=== PATIENT | female | born 1955 | race Caucasian/White ===

== ENCOUNTER 2021-05-08 10:16 | Inpatient (IN) ==
[2021-05-08] MEDS ORDERED: POTASSIUM CHLORIDE / WTR 10 MEQ/100 ML PLCT IV ONE (11:29)
--- NOTE | 2021-05-08 11:32 | Emergency Department Note ---
History of Present Illness General Chief complaint: Abnormal Labs/Diagnostic Testing Stated complaint: SENT BY [facility] Time Seen by Provider: 05/08/21 11:17 History of Present Illness This is a 65-year-old female that presents to the emergency department via private vehicle accompanied by male with complaints of "hypokalemia, lightheadedness, dizzy". Patient states that earlier today she had her blood drawn at 3:25 AM. She notes around that time she was experiencing a headache, nausea. She also felt that she had some trouble breathing as well. She also notes intermittent chest pain. She received an emergent call this morning noting that her potassium was critically low. She presents to us here for evaluation. She denies any fevers, vomiting or diarrhea. No pain at the pres ent time. Home Medications Medication Instructions Recorded Confirmed Type aspirin 81 mg tablet,delayed 81 mg PO DAILY #30 tab 09/28/20 05/08/21 Rx release folic acid 0.8 mg capsule 0.8 mg PO DAILY #30 cap 09/28/20 05/08/21 Rx ibuprofen [Advil] 200 mg PO DAILY PRN 09/28/20 05/08/21 History esomeprazole magnesium [Nexium] 1 tab PO BID 10/05/20 05/08/21 History lubiprostone 24 mcg capsule 24 mcg PO BID #180 cap 10/12/20 05/08/21 Rx (Amitiza) denosumab 60 mg/mL subcutaneous 60 mg SUBCUT DIRECTED ml 01/05/21 05/08/21 History syringe (Prolia) flurazepam 30 mg capsule 30 mg PO HS PRN #30 cap 04/04/21 05/08/21 Rx atorvastatin 40 mg tablet 40 mg PO DAILY 04/13/21 05/08/21 History multivitamin [Daily Multivitamin] 1 tab PO DAILY 04/13/21 05/08/21 History triamterene 37.5 1 cap PO DAILY #90 cap 04/13/21 05/08/21 Rx mg-hydrochlorothiazide 25 mg capsule cyclobenzaprine 10 mg tablet 10 mg PO DAILY PRN #30 tab 05/02/21 05/08/21 Rx vitamin D3 2,500 unit-folic acid 1 1 tab PO DAILY 05/08/21 05/08/21 History mg tablet Allergies Allergy/AdvReac Type Severity Reaction Status Date / Time Latex, Natural Rubber Allergy Mild Verified 05/08/21 12:34 Past Med/Surg History Medical History Anal fissure Chronic constipation Chronic distal aortic occlusion Depression Endometriosis GERD without esophagitis Hiatal hernia Hypertension Hypertriglyceridemia Insomnia Long-term current use of benzodiazepine Osteoporosis Prediabetes PVD (peripheral vascular disease) Rectocele Vitamin D deficiency Surgical History H/O colonoscopy with polypectomy (~01/2019) S/P appendectomy 1974 S/P hysterectomy 1990 S/P shoulder surgery 2004? Family History Aunt Breast cancer Father Myocardial infarction Denies family history of Crohn's disease Colorectal cancer Ulcerative colitis Colonic polyp Social History Smoking Status: Never smoker Age Started Using Tobacco: 20; Age Quit Using Tobacco: 62; packs per day: 0.5; Second Hand Exposure: No; Hx Alcohol Use: Yes Alcohol type: wine Alcohol Intake Frequency: 4 or More x per/Week Hx Substance Use: No Visual Impairment: No Limitations Hearing Ability: Normal marital status: Current Living Situation: Family Current Living Situation Comment: , daughter, and 2 granddaughters current occupational status: other current occupation: Homemaker Feels Safe at Home: Yes Dental Care, Regularly: No Seatbelt Use: always Sunscreen Use: No Review of Systems A total of 10 systems reviewed and were otherwise negative Physical Exam Vital Signs Vital Signs - 24 hr 05/08/21 10:28 05/08/21 11:20 05/08/21 11:21 Temperature 36.6 C Temperature Source Skin Pulse Rate 80 78 Pulse Rate [Apical] 70 Pulse Rate from SpO2 Sensor Pulse Rhythm [Apical] Regular Respiratory Rate 18 16 17 Respiratory Effort / Characteristics Non-Labored Respiratory Depth Normal Blood Pressure Blood Pressure [Right Arm] 135/73 Blood Pressure Mean Blood Pressure Mean [Right Arm] 93 Pulse Oximetry 100 99 Oxygen Delivery Method Room Air Room Air Sepsis Recent Fever Within 48 Hours No Sepsis New/Unexplained Change in Mental Status No Sepsis Action Taken by Nursing No Action Required 05/08/21 11:24 05/08/21 11:30 05/08/21 12:00 Temperature Temperature Source Pulse Rate 74 75 Pulse Rate [Apical] Pulse Rate from SpO2 Sensor 72 75 Pulse Rhythm [Apical] Respiratory Rate 21 18 Respiratory Effort / Characteristics Respiratory Depth Blood Pressure 145/93 H 126/61 Blood Pressure [Right Arm] Blood Pressure Mean 110 82 Blood Pressure Mean [Right Arm] Pulse Oximetry 99 96 92 Oxygen Delivery Method Room Air Sepsis Recent Fever Within 48 Hours Sepsis New/Unexplained Change in Mental Status Sepsis Action Taken by Nursing 05/08/21 12:30 05/08/21 13:00 Temperature Temperature Source Pulse Rate 82 78 Pulse Rate [Apical] Pulse Rate from SpO2 Sensor 82 77 Pulse Rhythm [Apical] Respiratory Rate 17 18 Respiratory Effort / Characteristics Respiratory Depth Blood Pressure 125/69 129/67 Blood Pressure [Right Arm] Blood Pressure Mean 87 87 Blood Pressure Mean [Right Arm] Pulse Oximetry 90 95 Oxygen Delivery Method Sepsis Recent Fever Within 48 Hours Sepsis New/Unexplained Change in Mental Status Sepsis Action Taken by Nursing VITAL SIGNS - Vital signs and nursing notes were reviewed. Stable and afebrile. GENERAL -65-year-old female appearing her stated age who is in no acute distress. Communicates well with provider and answers questions appropriately. SKIN - Without rashes. No meningeal or petechial rash. HEAD - NC/AT. EYES - PERRL with EOMI bilaterally. Sclera anicteric. EARS - No deformities of external structures noted on gross examination bilaterally. NOSE - Midline and without cyanosis. No epistaxis or purulent drainage noted. MOUTH/OROPHARYNX - Without perioral cyanosis. NECK - Neck with FROM. No nuchal rigidity. LUNGS - Chest wall symmetric without accessory muscle use, intercostals retracti ons, or central cyanosis. Normal vesicular breath sounds CTA B/L. No wheezes, rales, or rhonchi appreciated. CARDIAC - RRR with S1/S2. No murmur, rubs, or gallops appreciated. ABDOMEN - Abdominal contour normal without pulsations or visible masses. BS normoactive all four quadrants. No tenderness, palpable masses, hepatosplenomegaly, or ascites noted. EXTREMITIES - No clubbing or peripheral cyanosis. +5/5 strength noted in UE/LE bilaterally. NEUROLOGIC - Cranial nerves II through XII grossly intact. PSYCH - A&O, and cooperates fully with examiner. Pt is very pleasant and interacts well with examiner. Course Administered Medications Magnesium Sulfate/Dextrose (Magnesium Sulfate / D5w) 1 gm in 100 mls @ 50 mls/hr IV Q2H ROCKY Stop: 05/08/21 18:29 Last Admin: 05/08/21 15:41 Dose: 50 mls/hr Documented by: [id number] Discontinued Medications Potassium Chloride (K Tito / Wtr) 10 meq in 100 mls @ 100 mls/hr IV ONE ONE Stop: 05/08/21 12:28 Last Infusion: 05/08/21 13:59 Dose: 0 mls/hr Documented by: [id number] Admin: 05/08/21 12:59 Dose: 100 mls/hr Documented by: [id number] Potassium Chloride (K Tito / Wtr) 10 meq in 100 mls @ 100 mls/hr IV Q1H STA Stop: 05/08/21 15:10 Last Infusion: 05/08/21 15:40 Dose: 0 mls/hr Documented by: [id number] Admin: 05/08/21 14:34 Dose: 100 mls/hr Documented by: [id number] Potassium Chloride (Potassium Chloride Crtab 20 Meq Tabcr) 60 meq PO NOW STA Stop: 05/08/21 13:58 Last Admin: 05/08/21 14:35 Dose: 60 meq Documented by: [id number] Medical Decision Making Laboratory Data Result diagrams: 05/08/21 11:30 05/08/21 12:44 Lab Results 05/08/21 05/08/21 05/08/21 Range/Units 11:24 11:24 11:30 WBC 11.35 H (4.8-10.8) K/uL RBC 4.17 L (4.2-5.4) M/uL Hgb 14.5 (12.0-16.0) g/dL Hct 40.3 (37-47) % MCV 96.6 (80-100) fL MCH 34.8 H (25-34) pg MCHC 36.0 (32-36) g/dL RDW Std Deviation 45.1 (36.4-46.3) fL RDW Coeff of Kaylynn 12.9 (11.5-14.5) % Plt Count 319 (130-400) K/uL MPV 8.8 (7.4-10.4) fL Immature Gran % (Auto) 0.4 % Neut % (Auto) 70.7 % Lymph % (Auto) 19.6 % Lander % (Auto) 8.4 % Eos % (Auto) 0.6 % Baso % (Auto) 0.3 % Neut # (Auto) 8.04 H (1.4-6.5) K/uL Lymph # (Auto) 2.22 (1.2-3.4) K/uL Lander # (Auto) 0.95 H (0.11-0.59) K/uL Eos # (Auto) 0.07 (0-0.5) K/uL Baso # (Auto) 0.03 (0-0.2) K/uL Immature Gran # (Auto) 0.04 H (0.00-0.02) K/uL Sodium (136-145) mmol/L Potassium (3.5-5.1) mmol/L Chloride (98-107) mmol/L Carbon Dioxide (21-32) mmol/L Anion Gap (3-11) BUN (7-18) mg/dl Creatinine (0.6-1.2) mg/dl Est Cr Clr Drug Dosing ml/min Est GFR ( Amer) ml/min Est GFR (Non-Af Amer) ml/min BUN/Creatinine Ratio (10-20) Glucose (70-99) mg/dl Osmolality (280-300) mOsm/kg Calcium (8.5-10.1) mg/dl Phosphorus (2.5-4.9) mg/dl Magnesium (1.8-2.4) mg/dl Total Bilirubin (0.2-1) mg/dl AST (15-37) U/L ALT (12-78) U/L Alkaline Phosphatase (45-117) U/L Troponin I (0-0.045) ng/ml Total Protein (6.4-8.2) gm/dl Albumin (3.4-5.0) gm/dl Globulin (2.5-4.0) gm/dl Albumin/Globulin Ratio (0.9-2) TSH (0.300-4.500) uIu/ml Urine Color Urine Appearance (Clear) Urine pH (4.5-7.5) Ur Specific [address] (1.000-1.030) Urine Protein (Negative) Urine Glucose (UA) (Negative) Urine Ketones (Negative) Urine Blood (Negative) Urine Nitrite (Negative) Urine Bilirubin (Negative) Urine Urobilinogen (Negative) Ur Leukocyte Esterase (Negative) Urine WBC (Auto) (0-5) /hpf Urine RBC (Auto) (0-4) /hpf U Hyaline Cast (Auto) (0-5) /lpf U Epithel Cells (Auto) (0-5) /lpf Urine Bacteria (Auto) (Negative) Urine Osmolality (500-800) mOsm/kg Ur Random Sodium mmol/L Ur Random Potassium mmol/L Ur Random Chloride mmol/L COVID-19 Eval Order Covid19 at [facility] SARS-CoV-2 (PCR) NEGATIVE (Negative) 05/08/21 05/08/21 05/08/21 Range/Units 11:30 11:30 12:44 WBC (4.8-10.8) K/uL RBC (4.2-5.4) M/uL Hgb (12.0-16.0) g/dL Hct (37-47) % MCV (80-100) fL MCH (25-34) pg MCHC (32-36) g/dL RDW Std Deviation (36.4-46.3) fL RDW Coeff of Kaylynn (11.5-14.5) % Plt Count (130-400) K/uL MPV (7.4-10.4) fL Immature Gran % (Auto) % Neut % (Auto) % Lymph % (Auto) % Lander % (Auto) % Eos % (Auto) % Baso % (Auto) % Neut # (Auto) (1.4-6.5) K/uL Lymph # (Auto) (1.2-3.4) K/uL Lander # (Auto) (0.11-0.59) K/uL Eos # (Auto) (0-0.5) K/uL Baso # (Auto) (0-0.2) K/uL Immature Gran # (Auto) (0.00-0.02) K/uL Sodium 116 L* D 117 L* (136-145) mmol/L Potassium 2.1 L* 2.1 L* (3.5-5.1) mmol/L Chloride 74 L 77 L (98-107) mmol/L Carbon Dioxide 32 31 (21-32) mmol/L Anion Gap 10.0 9.0 (3-11) BUN 4 L 4 L (7-18) mg/dl Creatinine 0.55 L 0.44 L (0.6-1.2) mg/dl Est Cr Clr Drug Dosing 71.4 89.3 ml/min Est GFR ( Amer) 115.7 124.5 ml/min Est GFR (Non-Af Amer) 99.8 107.4 ml/min BUN/Creatinine Ratio 7.2 L 8.9 L (10-20) Glucose 99 94 (70-99) mg/dl Osmolality 239 L* (280-300) mOsm/kg Calcium 9.0 8.7 (8.5-10.1) mg/dl Phosphorus 2.8 (2.5-4.9) mg/dl Magnesium 1.9 1.9 (1.8-2.4) mg/dl Total Bilirubin 0.4 (0.2-1) mg/dl AST 26 (15-37) U/L ALT 28 (12-78) U/L Alkaline Phosphatase 89 (45-117) U/L Troponin I < 0.015 (0-0.045) ng/ml Total Protein 7.4 (6.4-8.2) gm/dl Albumin 3.7 (3.4-5.0) gm/dl Globulin 3.7 (2.5-4.0) gm/dl Albumin/Globulin Ratio 1.0 (0.9-2) TSH 1.510 (0.300-4.500) uIu/ml Urine Color Urine Appearance (Clear) Urine pH (4.5-7.5) Ur Specific [address] (1.000-1.030) Urine Protein (Negative) Urine Glucose (UA) (Negative) Urine Ketones (Negative) Urine Blood (Negative) Urine Nitrite (Negative) Urine Bilirubin (Negative) Urine Urobilinogen (Negative) Ur Leukocyte Esterase (Negative) Urine WBC (Auto) (0-5) /hpf Urine RBC (Auto) (0-4) /hpf U Hyaline Cast (Auto) (0-5) /lpf U Epithel Cells (Auto) (0-5) /lpf Urine Bacteria (Auto) (Negative) Urine Osmolality (500-800) mOsm/kg Ur Random Sodium mmol/L Ur Random Potassium mmol/L Ur Random Chloride mmol/L COVID-19 Eval Order SARS-CoV-2 (PCR) (Negative) 05/08/21 05/08/21 05/08/21 Range/Units 13:09 13:09 13:09 WBC (4.8-10.8) K/uL RBC (4.2-5.4) M/uL Hgb (12.0-16.0) g/dL Hct (37-47) % MCV (80-100) fL MCH (25-34) pg MCHC (32-36) g/dL RDW Std Deviation (36.4-46.3) fL RDW Coeff of Kaylynn (11.5-14.5) % Plt Count (130-400) K/uL MPV (7.4-10.4) fL Immature Gran % (Auto) % Neut % (Auto) % Lymph % (Auto) % Lander % (Auto) % Eos % (Auto) % Baso % (Auto) % Neut # (Auto) (1.4-6.5) K/uL Lymph # (Auto) (1.2-3.4) K/uL Lander # (Auto) (0.11-0.59) K/uL Eos # (Auto) (0-0.5) K/uL Baso # (Auto) (0-0.2) K/uL Immature Gran # (Auto) (0.00-0.02) K/uL Sodium (136-145) mmol/L Potassium (3.5-5.1) mmol/L Chloride (98-107) mmol/L Carbon Dioxide (21-32) mmol/L Anion Gap (3-11) BUN (7-18) mg/dl Creatinine (0.6-1.2) mg/dl Est Cr Clr Drug Dosing ml/min Est GFR ( Amer) ml/min Est GFR (Non-Af Amer) ml/min BUN/Creatinine Ratio (10-20) Glucose (70-99) mg/dl Osmolality (280-300) mOsm/kg Calcium (8.5-10.1) mg/dl Phosphorus (2.5-4.9) mg/dl Magnesium (1.8-2.4) mg/dl Total Bilirubin (0.2-1) mg/dl AST (15-37) U/L ALT (12-78) U/L Alkaline Phosphatase (45-117) U/L Troponin I (0-0.045) ng/ml Total Protein (6.4-8.2) gm/dl Albumin (3.4-5.0) gm/dl Globulin (2.5-4.0) gm/dl Albumin/Globulin Ratio (0.9-2) TSH (0.300-4.500) uIu/ml Urine Color Yellow Urine Appearance Clear (Clear) Urine pH 7.0 (4.5-7.5) Ur Specific [address] 1.002 (1.000-1.030) Urine Protein Negative (Negative) Urine Glucose (UA) Negative (Negative) Urine Ketones Negative (Negative) Urine Blood Trace H (Negative) Urine Nitrite Positive A (Negative) Urine Bilirubin Negative (Negative) Urine Urobilinogen Negative (Negative) Ur Leukocyte Esterase Negative (Negative) Urine WBC (Auto) 1-5 (0-5) /hpf Urine RBC (Auto) 0-4 (0-4) /hpf U Hyaline Cast (Auto) 0 (0-5) /lpf U Epithel Cells (Auto) 0-5 (0-5) /lpf Urine Bacteria (Auto) 4+ H (Negative) Urine Osmolality 76 L (500-800) mOsm/kg Ur Random Sodium mmol/L Ur Random Potassium < 1.0 mmol/L Ur Random Chloride 22 mmol/L COVID-19 Eval Order SARS-CoV-2 (PCR) (Negative) 05/08/21 Range/Units 13:09 WBC (4.8-10.8) K/uL RBC (4.2-5.4) M/uL Hgb (12.0-16.0) g/dL Hct (37-47) % MCV (80-100) fL MCH (25-34) pg MCHC (32-36) g/dL RDW Std Deviation (36.4-46.3) fL RDW Coeff of Kaylynn (11.5-14.5) % Plt Count (130-400) K/uL MPV (7.4-10.4) fL Immature Gran % (Auto) % Neut % (Auto) % Lymph % (Auto) % Lander % (Auto) % Eos % (Auto) % Baso % (Auto) % Neut # (Auto) (1.4-6.5) K/uL Lymph # (Auto) (1.2-3.4) K/uL Lander # (Auto) (0.11-0.59) K/uL Eos # (Auto) (0-0.5) K/uL Baso # (Auto) (0-0.2) K/uL Immature Gran # (Auto) (0.00-0.02) K/uL Sodium (136-145) mmol/L Potassium (3.5-5.1) mmol/L Chloride (98-107) mmol/L Carbon Dioxide (21-32) mmol/L Anion Gap (3-11) BUN (7-18) mg/dl Creatinine (0.6-1.2) mg/dl Est Cr Clr Drug Dosing ml/min Est GFR ( Amer) ml/min Est GFR (Non-Af Amer) ml/min BUN/Creatinine Ratio (10-20) Glucose (70-99) mg/dl Osmolality (280-300) mOsm/kg Calcium (8.5-10.1) mg/dl Phosphorus (2.5-4.9) mg/dl Magnesium (1.8-2.4) mg/dl Total Bilirubin (0.2-1) mg/dl AST (15-37) U/L ALT (12-78) U/L Alkaline Phosphatase (45-117) U/L Troponin I (0-0.045) ng/ml Total Protein (6.4-8.2) gm/dl Albumin (3.4-5.0) gm/dl Globulin (2.5-4.0) gm/dl Albumin/Globulin Ratio (0.9-2) TSH (0.300-4.500) uIu/ml Urine Color Urine Appearance (Clear) Urine pH (4.5-7.5) Ur Specific [address] (1.000-1.030) Urine Protein (Negative) Urine Glucose (UA) (Negative) Urine Ketones (Negative) Urine Blood (Negative) Urine Nitrite (Negative) Urine Bilirubin (Negative) Urine Urobilinogen (Negative) Ur Leukocyte Esterase (Negative) Urine WBC (Auto) (0-5) /hpf Urine RBC (Auto) (0-4) /hpf U Hyaline Cast (Auto) (0-5) /lpf U Epithel Cells (Auto) (0-5) /lpf Urine Bacteria (Auto) (Negative) Urine Osmolality (500-800) mOsm/kg Ur Random Sodium 29 mmol/L Ur Random Potassium mmol/L Ur Random Chloride mmol/L COVID-19 Eval Order SARS-CoV-2 (PCR) (Negative) Imaging Data Radiologist's Impression: Chest X-Ray 05/08/21 11:29 XR chest 1V portable CLINICAL HISTORY: chest pain, hypokalemia COMPARISON STUDY: January 20, 2009 FINDINGS: No pneumothorax. No pleural effusion. Multiple linear densities are seen at bilateral bases and could represent atelectasis or scarring. Cardiomediastinal silhouette is within normal limits in size. No significant pulmonary vascular congestion.. Aorta is calcified. Osseous structures: unremarkable IMPRESSION: 1. Atelectasis or scarring at bilateral bases. 2. Atherosclerosis. ACT 112: Negative or not required by law. The above report was generated using voice recognition software. It may contain grammatical, syntax or spelling errors. Electronically signed by: Klaudia Moreno DO 05/08/2021 11:52 AM MDM Narrative Patient was seen and evaluated as above in room C09. Review was performed of nursing notes and vital signs. I did review pertinent previous visits and patient history. After obtaining a thorough history and physical examination the above work up was performed. Patient presents to us today referred secondary to critical hypokalemia value drawn on routine labs that were obtained earlier this morning. She does note associated intermittent dizziness, lightheadedness, chest pain/shortness of breath. She is nontoxic on exam. Vital signs stable. Options of care were discussed with the patient. IV access was established. Labs were drawn. Patient was seen during a period of high volume and high acuity. Laboratory studies reveal mild leukocytosis 11.35. No concerning anemia noted there is hyponatremia and hypokalemia noted urine sample concerning for possible UTI. Covid test negative. Patient will require further evaluation and management the inpatient setting. 10meq of potassium chloride IV was ordered. Case discussed with the hospitalist. Please refer to further documentation regarding her stay. GCS: 15 Continuous cardiac monitoring was ordered for the patient. This was secondary to her symptoms/hypokalemia. This revealed at a rate of 81/min. In the evaluation and treatment of this patient the following differential diagnoses were entertained: IN, PE, electrolyte disturbance, dehydration, among others. Impression & Plan Acute hyponatremia, Acute hypokalemia Discharge Plan Visit Data Chief Complaint: Abnormal Labs/Diagnostic Testing Stated Complaint: SENT BY , [facility] ED Provider: [facility] Midlevel Provider: Kg Boyer Discharge Problem: Acute hyponatremia, Acute hypokalemia Patient Disposition: Admitted As Inpatient Condition: Good Discharge Instructions Interventions: ED Discharge Assessment Last Done: 05/08/21 16:44
[2021-05-08 11:45] LABS: Basophils # (auto) 0.03 K/uL (0-0.2); Basophils % (auto) 0.3 %; Eosinophils # (auto) 0.07 K/uL (0-0.5); Eosinophils % (auto) 0.6 %; Hematocrit (blood only) 40.3 % (37-47); Hemoglobin 14.5 g/dL (12.0-16.0); Immature Granulocytes # (auto) 0.04 K/uL (0.00-0.02); Immature Granulocytes % (auto) 0.4 %; Lymphocytes # (auto) 2.22 K/uL (1.2-3.4); Lymphocytes % (auto) 19.6 %; Mean Corpuscular Hemoglobin 34.8 pg (25-34); Mean Corpuscular Volume 96.6 fL (80-100); Mean Platelet Volume 8.8 fL (7.4-10.4); Monocytes # (auto) 0.95 K/uL (0.11-0.59); Monocytes % (auto) 8.4 %; Neutrophils # (auto) 8.04 K/uL (1.4-6.5); Neutrophils % (auto) 70.7 %; Platelet Count 319 K/uL (130-400); RDW Coefficient of Variation 12.9 % (11.5-14.5); RDW Standard Deviation 45.1 fL (36.4-46.3); Red Blood Count 4.17 M/uL (4.2-5.4); White Blood Count 11.35 K/uL (4.8-10.8)
--- NOTE | 2021-05-08 11:54 | XRay Report ---
XR chest 1V portable CLINICAL HISTORY: chest pain, hypokalemia COMPARISON STUDY: January 20, 2009 FINDINGS: No pneumothorax. No pleural effusion. Multiple linear densities are seen at bilateral bases and could represent atelectasis or scarring. Cardiomediastinal silhouette is within normal limits in size. No significant pulmonary vascular congestion.. Aorta is calcified. Osseous structures: unremarkable IMPRESSION: 1. Atelectasis or scarring at bilateral bases. 2. Atherosclerosis. ACT 112: Negative or not required by law. The above report was generated using voice recognition software. It may contain grammatical, syntax o r spelling errors. Electronically signed by: Klaudia Moreno DO 05/08/2021 11:52 AM
[2021-05-08 12:24] LABS: Alanine Aminotransferase 28 U/L (12-78); Albumin Level 3.7 gm/dl (3.4-5.0); Alkaline Phosphatase 89 U/L (45-117); Aspartate Aminotransferase 26 U/L (15-37); BUN Creatinine Ratio 7.2 (10-20); Bilirubin,Total 0.4 mg/dl (0.2-1); Blood Urea Nitrogen 4 mg/dl (7-18); Carbon Dioxide 32 mmol/L (21-32); Chloride 74 mmol/L (98-107); Creatinine Clr Calc Pharmacy 71.4 ml/min; Est GFR (African American) 115.7 ml/min; Est GFR (Non-African American) 99.8 ml/min; Globulin 3.7 gm/dl (2.5-4.0); Glucose 99 mg/dl (70-99); Magnesium 1.9 mg/dl (1.8-2.4); Potassium 2.1 mmol/L (3.5-5.1); Sodium 116 mmol/L (136-145); Total Protein 7.4 gm/dl (6.4-8.2); Troponin I < 0.015 ng/ml (0-0.045)
--- NOTE | 2021-05-08 13:07 | History & Physical Report ---
Date of Service May 08, 2021 Assessment & Plan (1) Hypokalemia: Plan: Acute hypokalemia- multifactorial - decrease oral intake, stool losses, diuretic - Hold diuretics - 60meq PO and 10meq IV in the EMD - Continue with 20meq IV to the quigley, and 40 meq PO at dinner - BMP q4 hours - Hyperkalemia, mild elevation of HCO3 at 31 - Na/cl ratio >1.4 - Urine potassium <1- consistent with extra-renal losses - Urine CL 22- consistent with diuretics (2) Hyponatremia: Plan: Diuretic use, water intoxication, chronic pain, decrease salt intake orally and acute hypokalemia - Hypotonic Euvolemic Hyponatremia- primary polydipsia - Serum OSMO 239; Urine osmo 76- Free water restriction 1.2L/24 hours - LR- 100ml/hr - UA sodium 29 - This will increase with increasing potassium as well so monitor q 4 hours - Goal 6-8mmol/24 hours (3) Left radial head fracture: Plan: Awaiting surgical repair - Was to get chemical EST within the next 2 days- evaluate ability to achieve once electrolytes are stabilized and cause identified - Pain control- Tylenol, Motrin, Lidoderm patches (4) Dyslipidemia: Plan: Cotninue statin (5) PVD (peripheral vascular disease): Plan: No acute change (6) Chronic distal aortic occlusion: Plan: Followed by outside provider- reported stable and reportedly cleared for elbow surgery (7) Hypertension: Plan: Stable - Hold diuretics at this time (8) Vitamin D deficiency: Plan: Continue Vitamin D (9) GERD without esophagitis: Plan: Continue esomeprazole (10) Abnormal urine: Plan: UA- WBC 1-5, 4+bacteria, LE Negative, Nitrates + - asymptomatic- follow symptoms await cultures - serum WBC 11 with NLR 4:1 History of Present Illness Primary Care Provider: Sienna Real, DO 65 YOF with past medical history of: HTN, HLD, ? Mitral valve prolapse, GERD, chronic constipation, insomnia, Vitamin D deficiency, distal aorta occlusion, PVD, Fractured left radial head. Patient comes in today for abnormal laboratory value of potassium of 2.3. The patient had her labs drawn at home and transported an hour prior to running. Validity of these results was done x2, with her K at 2.1 and NA at 117. The patient had her labs drawn secondary to feeling week and tired over the past week. She endorses that her appetite is normally low secondary to feeling full, but this has gotten worse secondary to her elbow pain. She has chronic constipation, and is on Amitiza 24mcb BID, which gives her mixed results of either 1-4 BM per day mostly liquid. She does endorse mostly water intake with about 5 of the 64 oz bottles per day. Patient has not gotten her elbow repaired yet secondary to clearance for her distal aortic occlusion and heart evaluation for surgical tolerance by cardiology. The patient is to have a chemical stress test tomorrow she states. Most of her complaints are related to her pain in her elbow. Allergies Allergy/AdvReac Type Severity Reaction Status Date / Time Latex, Natural Rubber Allergy Mild Verified 05/08/21 12:34 Home Medications Medication Instructions Recorded Confirmed Type aspirin 81 mg tablet,delayed 81 mg PO DAILY #30 tab 09/28/20 05/08/21 Rx release folic acid 0.8 mg capsule 0.8 mg PO DAILY #30 cap 09/28/20 05/08/21 Rx ibuprofen [Advil] 200 mg PO DAILY PRN 09/28/20 05/08/21 History esomeprazole magnesium [Nexium] 1 tab PO BID 10/05/20 05/08/21 History lubiprostone 24 mcg capsule 24 mcg PO BID #180 cap 10/12/20 05/08/21 Rx (Amitiza) denosumab 60 mg/mL subcutaneous 60 mg SUBCUT DIRECTED ml 01/05/21 05/08/21 History syringe (Prolia) flurazepam 30 mg capsule 30 mg PO HS PRN #30 cap 04/04/21 05/08/21 Rx atorvastatin 40 mg tablet 40 mg PO DAILY 04/13/21 05/08/21 History multivitamin [Daily Multivitamin] 1 tab PO DAILY 04/13/21 05/08/21 History triamterene 37.5 1 cap PO DAILY #90 cap 04/13/21 05/08/21 Rx mg-hydrochlorothiazide 25 mg capsule cyclobenzaprine 10 mg tablet 10 mg PO DAILY PRN #30 tab 05/02/21 05/08/21 Rx vitamin D3 2,500 unit-folic acid 1 1 tab PO DAILY 05/08/21 05/08/21 History mg tablet Past Med/Surg History Medical History Anal fissure Chronic constipation Chronic distal aortic occlusion Depression Endometriosis GERD without esophagitis Hiatal hernia Hypertension Hypertriglyceridemia Insomnia Long-term current use of benzodiazepine Osteoporosis Prediabetes PVD (peripheral vascular disease) Rectocele Vitamin D deficiency Surgical History H/O colonoscopy with polypectomy (~01/2019) S/P appendectomy 1974 S/P hysterectomy 1990 S/P shoulder surgery 2004? Family History Aunt Breast cancer Father Myocardial infarction Denies family history of Crohn's disease Colorectal cancer Ulcerative colitis Colonic polyp Social History Smoking Status: Former smoker Age Started Using Tobacco: 20; Age Quit Using Tobacco: 62; packs per day: 0.5; Second Hand Exposure: No; Hx Alcohol Use: Yes Alcohol type: hard liquor Alcohol Intake Frequency: 4 or More x per/Week Hx Substance Use: No Preferred Language: [place] Communication Ability: Effective Visual Impairment: No Limitations Hearing Ability: Normal Home Hospice Rn Required: No Beliefs That Will Affect Care: None marital status: Current Living Situation: Family Current Living Situation Comment: , daughter, and 2 granddaughters current occupational status: other current occupation: Homemaker Feels Safe at Home: Yes Dental Care, Regularly: No Seatbelt Use: always Sunscreen Use: No Assistive Devices: Glasses Review of Systems Review of Systems: REVIEW OF SYSTEMS: Constitutional: No fever, sweats or chills Eyes: No diplopia, no worsening or blurred vision ENT: (+) difficulty hearing, early satiety Respiratory: No cough, sputum, dyspnea at rest or on exertion Cardiovascular: No chest pain, tightness or palpitations Abdomen: No pain, nausea, vomiting, diarrhea or constipation Musculoskeletal: (+) pain, calf pain, swelling Neurologic: No weakness, numbness/tingling, or balance problems Psychiatric: (+) insomnia, No anxiety or depression Skin: No rash or itch Physical Exam Physical Exam: PHYSICAL EXAM: General: awake, alert, no apparent distress Head: Normocephalic, atraumatic ENT: PERRL, EOMI, no pharyngeal exudate, mucous membranes moist Neuro: AAO x 3, speech clear and appropriate, strength intact bilaterally 5/5, sensation intact and equal all extremities and dermatomes, no pronator drift Chest: equal rise and fall of the chest, no accessory muscle use, no heaves or thrills, Clear to auscultation, on room air, Cardiac: Regular rate and rhythm, telemetry reviewed, skin warm dry, cap refill <3 seconds, peripheral pulses +2 no JVD, no murmur, no JVD, no edema GI: NABS x 4 quadrants, soft, softly distended, nontender to palpation, tympany on percussion, no rebound, guarding or tenderness : Spontaneously voiding, no pain, no CVA tenderness, Extremities: left elbow tenderness to palpation, decreased use and ROM secondary to pain Psych: Normal mood and affect Skin: no rash or erythema Results & Data Results & Data ([facility]) Vital Signs (Past 12 Hours) Vital Signs Temp Pulse Pulse Resp BP BP Pulse Ox 05/08/21 12:00 75 18 126/61 92 05/08/21 11:30 74 21 145/93 H 96 05/08/21 11:24 99 05/08/21 11:21 78 17 05/08/21 11:20 70 16 135/73 99 05/08/21 10:28 36.6 C 80 18 100 Laboratory Results Abnormal lab results 05/08/21 05/08/21 05/08/21 Range/Units 11:30 11:30 11:30 WBC 11.35 H (4.8-10.8) K/uL RBC 4.17 L (4.2-5.4) M/uL MCH 34.8 H (25-34) pg Neut # (Auto) 8.04 H (1.4-6.5) K/uL Borden # (Auto) 0.95 H (0.11-0.59) K/uL Immature Gran # (Auto) 0.04 H (0.00-0.02) K/uL Sodium 116 L* D (136-145) mmol/L Potassium 2.1 L* (3.5-5.1) mmol/L Chloride 74 L (98-107) mmol/L BUN 4 L (7-18) mg/dl Creatinine 0.55 L (0.6-1.2) mg/dl BUN/Creatinine Ratio 7.2 L (10-20) Osmolality 239 L* (280-300) mOsm/kg Urine Blood (Negative) Urine Nitrite (Negative) Urine Bacteria (Auto) (Negative) Urine Osmolality (500-800) mOsm/kg 05/08/21 05/08/21 05/08/21 Range/Units 12:44 13:09 13:09 WBC (4.8-10.8) K/uL RBC (4.2-5.4) M/uL MCH (25-34) pg Neut # (Auto) (1.4-6.5) K/uL Borden # (Auto) (0.11-0.59) K/uL Immature Gran # (Auto) (0.00-0.02) K/uL Sodium 117 L* (136-145) mmol/L Potassium 2.1 L* (3.5-5.1) mmol/L Chloride 77 L (98-107) mmol/L BUN 4 L (7-18) mg/dl Creatinine 0.44 L (0.6-1.2) mg/dl BUN/Creatinine Ratio 8.9 L (10-20) Osmolality (280-300) mOsm/kg Urine Blood Trace H (Negative) Urine Nitrite Positive A (Negative) Urine Bacteria (Auto) 4+ H (Negative) Urine Osmolality 76 L (500-800) mOsm/kg Diagnostic Findings Chest X-Ray 05/08/21 11:29 XR chest 1V portable CLINICAL HISTORY: chest pain, hypokalemia COMPARISON STUDY: January 20, 2009 FINDINGS: No pneumothorax. No pleural effusion. Multiple linear densities are seen at bilateral bases and could represent atelectasis or scarring. Cardiomediastinal silhouette is within normal limits in size. No significant pulmonary vascular congestion.. Aorta is calcified. Osseous structures: unremarkable IMPRESSION: 1. Atelectasis or scarring at bilateral bases. 2. Atherosclerosis. ACT 112: Negative or not required by law. The above report was generated using voice recognition software. It may contain grammatical, syntax or spelling errors. Electronically signed by: Klaudia Moreno DO 05/08/2021 11:52 AM Medications Administered Discontinued Medications Potassium Chloride (K Tito / Wtr) 10 meq in 100 mls @ 100 mls/hr IV ONE ONE Stop: 05/08/21 12:28 Last Admin: 05/08/21 12:59 Dose: 100 mls/hr Documented by: [id number] Home Medications aspirin 81 mg tablet,delayed release 81 mg PO DAILY #30 tab 09/28/20 [Rx Confirmed 05/05/21] folic acid 0.8 mg capsule 0.8 mg PO DAILY #30 cap 09/28/20 [Rx Confirmed 1] ibuprofen [Advil] PO PRN 09/28/20 [History Confirmed 05/05/21] esomeprazole magnesium [Nexium] See Rx Instructions PO BID 10/05/20 [History Confirmed 05/05/21] lubiprostone 24 mcg capsule (Amitiza) 24 mcg PO BID #180 cap 10/12/20 [Rx Confirmed 05/05/21] denosumab 60 mg/mL subcutaneous syringe (Prolia) mg SUBCUT .every 6month ml 01/05/21 [History Confirmed 05/05/21] flurazepam 30 mg capsule 30 mg PO HS PRN #30 cap 04/04/21 [Rx Confirmed 05/05/21] atorvastatin 40 mg tablet 40 mg PO DAILY 04/13/21 [History Confirmed 05/05/21] multivitamin [Daily Multivitamin] See Rx Instructions PO .COMPLEX 04/13/21 [History Confirmed 05/05/21] triamterene 37.5 mg-hydrochlorothiazide 25 mg capsule 1 cap PO DAILY #90 cap 04/13/21 [Rx Confirmed 05/05/21] cyclobenzaprine 10 mg tablet 10 mg PO DAILY PRN #30 tab 05/02/21 [Rx Confirmed 05/05/21] vitamin D3 2,500 unit-folic acid 1 mg tablet 1 tab PO DAILY 05/08/21 [History Confirmed 05/08/21] Discontinued Medications Potassium Chloride (K Tito / Wtr) 10 meq in 100 mls @ 100 mls/hr IV ONE ONE Stop: 05/08/21 12:28 Last Admin: 05/08/21 12:59 Dose: 100 mls/hr Documented by: [id number] ECG Additional Comments: Sinus rhythm with Premature atrial complexes in a pattern of bigeminy Anterior infarct , age undetermined. QT/QTc 434/458 ms Code Status & VTE Plan Code Status CODE: FULL VTE: SCDs, Lovenox 30 subq daily Supervising Physician Co-Signing Physician Notes Patient was seen and examined independently I discussed the case with Roverto OCONNOR I reviewed pertinent past medical social family history and also the plan of care and agree with the plan of care. pt had out pt labs drawn as was not feeling well, for upcoming cardiac clearance stress test for left elbow surgery, found to have hyponatremia and hypokalemia likely from excess water drinking euvolemic hyponatremia with low serum and urine osmolarity fluid restrict and follow serial labs exam shows crepitence to elbow, slight heart murmur Any exceptions will be noted below PG Care Time/CCT Total # of Minutes Spent Total Time Spent with Patient: Total time spent is greater than 50% in coordination of care (as documented) at patient's floor/unit and/or counseling patient: Coding Level of Care Code 85377 Initial Inpt Care Lvl 3 Diagnoses Hypokalemia E87.6 Dyslipidemia E78.5 PVD (peripheral vascular disease) I73.9 Chronic distal aortic occlusion I74.09 Hypertension I10 Vitamin D deficiency E55.9 Left radial head fracture S52.122A GERD without esophagitis K21.9 Hyponatremia E87.1 Abnormal urine R82.90
[2021-05-08 13:33] LABS: Appearance Urine Clear (Clear); Bilirubin Urine Negative (Negative); Blood Urine Trace (Negative); Color Urine Yellow; Glucose Urine UA Negative (Negative); Ketones Urine Negative (Negative); Leukocyte Esterase Urine Negative (Negative); Nitrite Urine Positive (Negative); Protein Urine Negative (Negative); Specific Gravity Urine 1.002 (1.000-1.030); Urobilinogen Urine Negative (Negative)
[2021-05-08 13:54] LABS: BUN Creatinine Ratio 8.9 (10-20); Calcium 8.7 mg/dl (8.5-10.1); Creatinine Clr Calc Pharmacy 89.3 ml/min; Est GFR (African American) 124.5 ml/min; Est GFR (Non-African American) 107.4 ml/min; Magnesium 1.9 mg/dl (1.8-2.4); Phosphorus 2.8 mg/dl (2.5-4.9); Potassium 2.1 mmol/L (3.5-5.1)
[2021-05-08 13:56] LABS: Epithelial Cell Urine Auto 0-5 /lpf (0-5)
[2021-05-08 13:57] LABS: Bacteria Urine Automated 4+ (Negative); Cast Urine Automated 0 /lpf (0-5); RBC Urine Automated 0-4 /hpf (0-4)
[2021-05-08] MEDS ORDERED: IBUPROFEN 200 MG TAB PO PRN (13:57)
[2021-05-08] MEDS ORDERED: POTASSIUM CHLORIDE CRTAB 20 MEQ TABCR PO STA (13:57)
[2021-05-08] MEDS ORDERED: ACETAMINOPHEN 325 MG TAB PO PRN (13:57)
--- NOTE | 2021-05-08 14:01 | Electrocardiogram Report ---
Test Reason : Blood Pressure : / mmHG Vent. Rate : 067 BPM Atrial Rate : 067 BPM P-R Int : 158 ms QRS Dur : 084 ms QT Int : 434 ms P-R-T Axes : 091 064 082 degrees QTc Int : 458 ms Poor data quality, interpretation may be adversely affected Sinus rhythm with Premature atrial complexes in a pattern of bigeminy Poor R wave progression, consider anterior NH vs. lead placement vs. LVH Nonspecific T wave abnormality Anterior leads Abnormal ECG When compared with ECG of 20-JAN-2009 15:47, Premature atrial complexes are now Present Nonspecific T wave abnormality now present Anterior leads Confirmed by Reece Mosley ([id number]) on 05/08/2021 2:01:02 PM Referred By: Confirmed By:Reece Mosley
[2021-05-08] MEDS ORDERED: POTASSIUM CHLORIDE / WTR 10 MEQ/100 ML PLCT IV STA (14:11)
[2021-05-08 15:12] LABS: Chloride Random Urine 22 mmol/L; Potassium Random Urine < 1.0 mmol/L
[2021-05-08] MEDS: MAGNESIUM SULFATE / D5W 1 GM/100 ML BAG IV SCH ×2 (15:41→18:01)
[2021-05-08] MEDS ORDERED: POLYETHYLENE (MIRALAX) 17 GM PACK PO PRN (17:24)
[2021-05-08] MEDS ORDERED: LACTATED RINGER'S 1,000 ML IV SCH (17:24)
[2021-05-08] MEDS ORDERED: ONDANSETRON INJ 2 MG/ML 2 ML VIAL IV PRN (17:24)
[2021-05-08] MEDS ORDERED: CYCLOBENZAPRINE HCL 10 MG TAB PO PRN (17:40)
[2021-05-08] MEDS ORDERED: LORazepam 1 MG TAB PO PRN (17:46)
[2021-05-08 18:48] LABS: BUN Creatinine Ratio 6.6 (10-20); Calcium 8.9 mg/dl (8.5-10.1); Creatinine Clr Calc Pharmacy 62.3 ml/min; Est GFR (African American) 110.6 ml/min; Est GFR (Non-African American) 95.5 ml/min; Potassium 3.6 mmol/L (3.5-5.1)
[2021-05-08] MEDS: ENOXAPARIN INJ 30 MG/0.3 ML SYR SQ SCH (20:49)
[2021-05-08] MEDS: PANTOprazole 40 MG TAB PO SCH (20:52)
[2021-05-08] MEDS: POTASSIUM CHLORIDE CRTAB 20 MEQ TABCR PO SCH (20:53)
[2021-05-08] MEDS: LUBIPROSTONE 8 MCG CAP PO SCH (21:00)
[2021-05-08 23:00] LABS: BUN Creatinine Ratio 10.4 (10-20); Calcium 8.5 mg/dl (8.5-10.1); Creatinine Clr Calc Pharmacy 70.1 ml/min; Est GFR (Non-African American) 99.2 ml/min; Potassium 3.6 mmol/L (3.5-5.1)
[2021-05-09 02:18] LABS: Calcium 8.4 mg/dl (8.5-10.1); Creatinine Clr Calc Pharmacy 71.4 ml/min; Est GFR (African American) 115.7 ml/min; Est GFR (Non-African American) 99.8 ml/min; Potassium 4.3 mmol/L (3.5-5.1)
[2021-05-09] MEDS ORDERED: D5W AND 1/4NSS 1,000 ML IV SCH (03:30)
[2021-05-09 06:20] LABS: BUN Creatinine Ratio 7.7 (10-20); Calcium 8.3 mg/dl (8.5-10.1); Creatinine Clr Calc Pharmacy 71.4 ml/min; Est GFR (African American) 115.7 ml/min; Est GFR (Non-African American) 99.8 ml/min; Potassium 3.8 mmol/L (3.5-5.1)
--- NOTE | 2021-05-09 06:37 | Communication Note ---
Date of Service: May 09, 2021 Patient with hyponatremia and was signed out by swing provider that her goal was 125 for her sodium overnight. She was exceeding her goal and was up to 128 overnight. I started D5 1/4 fluid on her and her next sodium was 126. Follow up sodium will be at 9:30 this morning and a decision can be made at that time is she can stop her current fluids.
[2021-05-09] MEDS: LIDOCAINE 5% 1 PATCH TD SCH (09:23)
[2021-05-09] MEDS: MULTIVITAMIN TAB PO SCH (09:24)
[2021-05-09] MEDS: ASPIRIN 81 MG ECTAB PO SCH (09:24)
[2021-05-09] MEDS: LUBIPROSTONE 8 MCG CAP PO SCH ×3 (09:25→20:24)
[2021-05-09] MEDS: PANTOprazole 40 MG TAB PO SCH ×2 (09:25→20:14)
[2021-05-09] MEDS: ATORVASTATIN 40 MG TAB PO SCH (09:25)
[2021-05-09 10:07] LABS: BUN Creatinine Ratio 5.4 (10-20); Calcium 8.5 mg/dl (8.5-10.1); Creatinine Clr Calc Pharmacy 61.4 ml/min; Est GFR (African American) 110.1 ml/min; Potassium 3.5 mmol/L (3.5-5.1)
[2021-05-09] MEDS: POTASSIUM CHLORIDE CRTAB 20 MEQ TABCR PO SCH (11:25)
--- NOTE | 2021-05-09 13:32 | Electrocardiogram Report ---
Test Reason : Blood Pressure : / mmHG Vent. Rate : 077 BPM Atrial Rate : 077 BPM P-R Int : 134 ms QRS Dur : 074 ms QT Int : 406 ms P-R-T Axes : 017 061 075 degrees QTc Int : 459 ms Normal sinus rhythm Poor R wave progression, consider anterior CO vs. lead placement vs. LVH Nonspecific T wave abnormality Anteroseptal leads Abnormal ECG When compared with ECG of 08-MAY-2021 11:24, Premature atrial complexes are no longer Present Confirmed by Reece Mosley ([id number]) on 05/09/2021 1:32:26 PM Referred By: Sienna Real Confirmed By:Reece Mosley
[2021-05-09] MEDS ORDERED: LACTATED RINGER'S 1,000 ML IV SCH (14:00)
[2021-05-09 14:54] LABS: BUN Creatinine Ratio 6.2 (10-20); Creatinine Clr Calc Pharmacy 64.4 ml/min; Est GFR (African American) 111.8 ml/min; Est GFR (Non-African American) 96.5 ml/min; Potassium 4.6 mmol/L (3.5-5.1)
--- NOTE | 2021-05-09 16:24 | Hospitalist Progress Note ---
Date of Service May 09, 2021 Assessment & Plan (1) Hypokalemia: Plan: Acute hypokalemia- multifactorial - decrease oral intake, stool losses, diuretic - Hold diuretics - 60meq PO and 10meq IV in the EMD - Continue with 20meq IV to the quigley, and 40 meq PO at dinner - BMP q4 hours - Hyperkalemia, mild elevation of HCO3 at 31 - Na/cl ratio >1.4 - Urine potassium <1- consistent with extra-renal losses - Urine CL 22- consistent with diuretics Potassium has improved will recheck in AM. (2) Hyponatremia: Plan: Diuretic use, water intoxication, chronic pain, decrease salt intake orally and acute hypokalemia - Hypotonic Euvolemic Hyponatremia- primary polydipsia - Serum OSMO 239; Urine osmo 76- Free water restriction 1.2L/24 hours - LR- 80ml/hr - UA sodium 29 - This will increase with increasing potassium as well so monitor q 4 hours -Sodium 125. will resume LR and monitor. (3) Left radial head fracture: Plan: Awaiting surgical repair - Was to get chemical EST within the next 2 days- evaluate ability to achieve once electrolytes are stabilized and cause identified - Pain control- Tylenol, Motrin, Lidoderm patches (4) Dyslipidemia: Plan: Cotninue statin (5) PVD (peripheral vascular disease): Plan: No acute change (6) Chronic distal aortic occlusion: Plan: Followed by outside provider- reported stable and reportedly cleared for elbow surgery (7) Hypertension: Plan: Stable - Hold diuretics at this time (8) Vitamin D deficiency: Plan: Continue Vitamin D (9) GERD without esophagitis: Plan: Continue esomeprazole (10) Abnormal urine: Plan: UA- WBC 1-5, 4+bacteria, LE Negative, Nitrates + - asymptomatic- follow symptoms await cultures - serum WBC 11 with NLR 4:1 Admission and Anticipated Discharge Date Admission Date: May 08, 2021 Subjective Patient reports she wants to be discharged tomorrow and will sign out AMA if she isn't She currently has no new symptoms. Review of Systems Review of Systems: All systems reviewed & are unremarkable except as noted in HPI & below Physical Exam Physical Exam: General: awake, alert, no apparent distress Head: Normocephalic, atraumatic ENT: PERRL, EOMI, no pharyngeal exudate, mucous membranes moist Neuro: AAO x 3, speech clear and appropriate, strength intact bilaterally 5/5, sensation intact and equal all extremities and dermatomes, no pronator drift Chest: equal rise and fall of the chest, no accessory muscle use, no heaves or thrills, Clear to auscultation, on room air, Cardiac: Regular rate and rhythm, telemetry reviewed, skin warm dry, cap refill <3 seconds, peripheral pulses +2 no JVD, no murmur, no JVD, no edema GI: NABS x 4 quadrants, soft, softly distended, nontender to palpation, tympany on percussion, no rebound, guarding or tenderness : Spontaneously voiding, no pain, no CVA tenderness, Extremities: left elbow tenderness to palpation, decreased use and ROM secondary to pain Psych: Normal mood and affect Skin: no rash or erythema Results & Data Results & Data ([facility]) Vital Signs (Past 12 Hours) Vital Signs Temp Pulse Resp BP Pulse Ox 05/09/21 16:12 36.9 C 84 19 120/67 96 05/09/21 12:00 36.9 C 86 22 117/58 L 93 05/09/21 09:00 88 20 138/66 98 PG Care Time/CCT Total # of Minutes Spent Total Time Spent with Patient: Total time spent is greater than 50% in coordinat ion of care (as documented) at patient's floor/unit and/or counseling patient: Coding Level of Care Code 74297 Subseq Hosp Care Lvl 2 Diagnoses Hypokalemia E87.6 Hyponatremia E87.1 Left radial head fracture S52.122A Dyslipidemia E78.5 PVD (peripheral vascular disease) I73.9 Chronic distal aortic occlusion I74.09 Hypertension I10 Vitamin D deficiency E55.9 GERD without esophagitis K21.9 Abnormal urine R82.90
[2021-05-09] MEDS ORDERED: POTASSIUM CHLORIDE CRTAB 20 MEQ TABCR PO SCH (18:00)
[2021-05-09] MEDS: ENOXAPARIN INJ 30 MG/0.3 ML SYR SQ SCH (20:14)
[2021-05-10 05:13] LABS: Hematocrit (blood only) 36.3 % (37-47); Hemoglobin 12.4 g/dL (12.0-16.0); Mean Corpuscular Hemoglobin 33.7 pg (25-34); Mean Corpuscular Hgb Conc 34.2 g/dL (32-36); Mean Corpuscular Volume 98.6 fL (80-100); Mean Platelet Volume 8.5 fL (7.4-10.4); Platelet Count 286 K/uL (130-400); RDW Coefficient of Variation 13.6 % (11.5-14.5); RDW Standard Deviation 49.1 fL (36.4-46.3); Red Blood Count 3.68 M/uL (4.2-5.4); White Blood Count 9.23 K/uL (4.8-10.8)
[2021-05-10 05:46] LABS: BUN Creatinine Ratio 5.7 (10-20); Calcium 7.8 mg/dl (8.5-10.1); Creatinine Clr Calc Pharmacy 80.1 ml/min; Est GFR (African American) 120.2 ml/min; Est GFR (Non-African American) 103.7 ml/min
[2021-05-10] MEDS: LUBIPROSTONE 8 MCG CAP PO SCH (08:46)
[2021-05-10] MEDS: LIDOCAINE 5% 1 PATCH TD SCH (08:46)
[2021-05-10] MEDS: PANTOprazole 40 MG TAB PO SCH (08:49)
[2021-05-10] MEDS: ATORVASTATIN 40 MG TAB PO SCH (08:49)
[2021-05-10] MEDS: MULTIVITAMIN TAB PO SCH (08:49)
[2021-05-10] MEDS: ASPIRIN 81 MG ECTAB PO SCH (08:49)
--- NOTE | 2021-05-10 08:49 | Discharge Summary ---
Date of Service May 10, 2021 Admission HPI Per Admitting Provider 65 YOF with past medical history of: HTN, HLD, ? Mitral valve prolapse, GERD, chronic constipation, insomnia, Vitamin D deficiency, distal aorta occlusion, PVD, Fractured left radial head. Patient comes in today for abnormal laboratory value of potassium of 2.3. The patient had her labs drawn at home and transported an hour prior to running. Validity of these results was done x2, with her K at 2.1 and NA at 117. The patient had her labs drawn secondary to feeling week and tired over the past week. She endorses that her appetite is normally low secondary to feeling full, but this has gotten worse secondary to her elbow pain. She has chronic constipation, and is on Amitiza 24mcb BID, which gives her mixed results of either 1-4 BM per day mostly liquid. She does endorse mostly water intake with about 5 of the 64 oz bottles per day. Patient has not gotten her elbow repaired yet secondary to clearance for her distal aortic occlusion and heart evaluation for surgical tolerance by cardiology. The patient is to have a chemical stress test tomorrow she states. Most of her complaints are related to her pain in her elbow. Principal Diagnosis HYPOKALEMIA/HYPONATREMIA Discharge Exam General: awake, alert, no apparent distress Head: Normocephalic, atraumatic ENT: PERRL, EOMI, no pharyngeal exudate, mucous membranes moist Neuro: AAO x 3, speech clear and appropriate, strength intact bilaterally 5/5, sensation intact and equal all extremities and dermatomes, no pronator drift Chest: equal rise and fall of the chest, no accessory muscle use, no heaves or thrills, Clear to auscultation, on room air, Cardiac: Regular rate and rhythm, telemetry reviewed, skin warm dry, cap refill <3 seconds, peripheral pulses +2 no JVD, no murmur, no JVD, no edema GI: NABS x 4 quadrants, soft, softly distended, nontender to palpation, tympany on percussion, no rebound, guarding or tenderness : Spontaneously voiding, no pain, no CVA tenderness, Extremities: left elbow tenderness to palpation, decreased use and ROM secondary to pain Psych: Normal mood and affect Skin: no rash or erythema Discharge Data Allergies Allergy/AdvReac Type Severity Reaction Status Date / Time Latex, Natural Rubber Allergy Mild Verified 05/08/21 12:34 Consultations 05/08/21 12:38 ED Decision to Admit Stat Hospital Course (1) Hypokalemia: Acute hypokalemia- multifactorial - decrease oral intake, stool losses, diuretic - Hold diuretics - 60meq PO and 10meq IV in the EMD - Continue with 20meq IV to the quigley, and 40 meq PO at dinner - BMP q4 hours - Hyperkalemia, mild elevation of HCO3 at 31 - Na/cl ratio >1.4 - Urine potassium <1- consistent with extra-renal losses - Urine CL 22- consistent with diuretics Potassium was replenished. Likely due to diuretics. Blood pressure medications will be switched to an HALLEY-inhibitor and low dose calcium channel carlito: (lisinopril and amlodipine) (2) Hyponatremia: Diuretic use, water intoxication, chronic pain, decrease salt intake orally and acute hypokalemia - Hypotonic Euvolemic Hyponatremia- primary polydipsia - Serum OSMO 239; Urine osmo 76- Free water restriction 1.2L/24 hours - LR- 80ml/hr - UA sodium 29 -Sodium improved to 131 with IVF. As stated above, BP meds were changed at discharge. D/W Toño Rice APC (Cardiology) who agrees (3) Left radial head fracture: Awaiting surgical repair - Was to get chemical EST within the next 2 days- evaluate ability to achieve once electrolytes are stabilized and cause identified - Pain control- Tylenol, Motrin, Lidoderm patches (4) Dyslipidemia: [place] statin (5) PVD (peripheral vascular disease): No acute change (6) Chronic distal aortic occlusion: Followed by outside provider- reported stable and reportedly cleared for elbow surgery (7) Hypertension: Stable - Stop diuretics at this time -Place on lisinopril 5 MG po PM and amlodipine 2.5 mg PM as stated below on discharge med list (8) Vitamin D deficiency: Continue Vitamin D (9) GERD without esophagitis: Continue esomeprazole (10) Abnormal urine: UA- WBC 1-5, 4+bacteria, LE Negative, Nitrates + - asymptomatic- follow symptoms await cultures - serum WBC 11 with NLR 4:1 Total Time Total Time Spent Total Time Spent (In Minutes): 32 Discharge Plan Discharge Items Patient Disposition: Home - Self-Care Reason For Visit: HYPOKALEMIA, HYPONATREMIA Discharge Diagnosis: hyponatremia, hypokalemi Condition on Discharge: Good Activity: Resume your previous activity Non-emergency contact: Primary Care Provider Call non-emergency contact if: you have any medication questions Follow-up/Referrals: Sienna Real DO [Primary Care Provider] - 05/19/21 7:00 am Diet: Regular Addtl Attending Provider Instructions: You have been hospitalized for an acute medical problem. During your stay at [facility], we have made an effort to correct the problem that brought you to the hospital while keeping you as comfortable as possible. Medications were used to bring your condition under control and your discharge instructions will include directions for any medications you should take after leaving the hospital. Please make sure you see your Primary Care Provider as part of your follow up plan. Will recommend close followup with Toño Rice and PCP. Matt stop diuretics due to electrolyte abnormalities. will strt lisinopril and amlodipine. If you develop a dry cough, please let your PCP know as this my be side effect of the lisinopril. Please check BMP in 1 week. Pending Studies at Discharge: No Stand-Alone Forms: My [facility], Smoking Cessation Medications and DC Order Prescriptions: New lisinopril 5 mg tablet 5 mg PO PM Qty: 30 RF: 0 amlodipine 2.5 mg tablet 2.5 mg PO PM Qty: 30 RF: 0 Continued lubiprostone [Amitiza] 24 mcg capsule 24 mcg PO BID Qty: 180 RF: 3 Prolia 60 mg/mL syringe 60 mg subcut DIRECTED RF: 0 flurazepam 30 mg capsule 30 mg PO HS PRN (Reason: insomnia) Qty: 30 RF: 0 cyclobenzaprine 10 mg tablet 10 mg PO DAILY PRN (Reason: muscle spasm) Qty: 30 RF: 0 ibuprofen 200 mg PO DAILY PRN (Reason: Pain) RF: 0 aspirin 81 mg tablet,delayed release (DR/EC) 81 mg PO DAILY Qty: 30 RF: 2 folic acid 0.8 mg capsule 0.8 mg PO DAILY Qty: 30 RF: 2 esomeprazole magnesium 1 tab PO BID RF: 0 atorvastatin 40 mg tablet 40 mg PO DAILY RF: 0 multivitamin [Daily Multivitamin] 1 tab PO DAILY RF: 0 vitamin D3-folic acid 2,500 unit- 1 mg Tablet 1 tab PO DAILY RF: 0 Discontinued triamterene-hydrochlorothiazid 37.5-25 mg capsule 1 cap PO DAILY Qty: 90 RF: 1 Discharge Orders: Discharge Order (Routine); Ordered 05/10/21 Ordered By: Seb Hodges/Other Patient Handouts: Discharge Instructions for Hypokalemia, Hyponatremia Dc Admission Data Admit Date/Time: 05/08/21 14:02 Attending Provider: Seb Lemons Admit Provider: Wero Boone Primary Care Provider: Sienna Real Other Providers: Wero Boone Other Interventions: Discharge Summary Assessment (RN) Last Done: 05/10/21 09:07 Coding Level of Care Code D/C DAY MANAGEMENT >30 MINS Diagnoses Hypokalemia E87.6 Hyponatremia E87.1 Left radial head fracture S52.122A Dyslipidemia E78.5 PVD (peripheral vascular disease) I73.9 Chronic distal aortic occlusion I74.09 Hypertension I10 Vitamin D deficiency E55.9 GERD without esophagitis K21.9 Abnormal urine R82.90
[2021-05-10] MEDS: POTASSIUM CHLORIDE CRTAB 20 MEQ TABCR PO SCH (08:50)
== END 2021-05-10 10:45 | disposition home or self-care (01) | DRG 641 ==
LOC: ED 10:16 → 1E 14:02 → SUATTDRO 14:02 → 1E 16:44 → 3N 05-09 15:41
DX: E87.1 Hypo-osmolality and hyponatremia; S52.122A Displaced fracture of head of left radius, initial encounter for closed fracture; E55.9 Vitamin D deficiency, unspecified; Z79.82 Long term (current) use of aspirin; K21.9 Gastro-esophageal reflux disease without esophagitis; X58.XXXA Exposure to other specified factors, initial encounter; K59.09 Other constipation; E78.5 Hyperlipidemia, unspecified; I10 Essential (primary) hypertension; R82.90 Unspecified abnormal findings in urine; E87.6 Hypokalemia; I74.09 Other arterial embolism and thrombosis of abdominal aorta; Z87.891 Personal history of nicotine dependence; I73.9 Peripheral vascular disease, unspecified; R63.1 Polydipsia

== ENCOUNTER 2022-01-09 11:52 | Inpatient (IN) ==
--- NOTE | 2022-01-09 13:02 | XRay Report ---
XR chest 2V PA/lateral HISTORY: confusion COMPARISON: Chest 05/08/2021. FINDINGS: No pneumothorax. No pleural effusions. The heart is normal in size. There are bibasilar shadi ear densities consistent with subsegmental atelectasis or scarring. This is similar to the prior stud y. Otherwise, no new focal lung consolidations to suggest pneumonia. No evidence for pulmonary edema. Distal resection of the left clavicle again noted. IMPRESSION: No significant change compared to the prior study. No acute process. ACT 112: Negative or not required by law. Electronically signed by: Ray Martin M.D. 01/09/2022 1:01 PM
--- NOTE | 2022-01-09 13:13 | Emergency Department Note ---
Impression & Plan Acute hyponatremia ADMIT ED Provider Note HPI: The patient is a 66-year-old female who presents the emergency department with a chief complaint of altered mental status for about the past 10 days. Patient's is at the bedside and is serving as the primary historian. Patient's states that the patient has had some confusion, she has been slow to respond to some questioning's, she is having trouble with her daily routine and frequently has to ask for instruction from him. This seems to be an acute change during this timeframe. Patient does not have any focal deficits, she tells me she is concerned about "early Alzheimer's" as a possible source of her confusion. On arrival here to the ED the patient is alert and oriented, she is able to tell me the year but she does not know how old she is. She is hemodynamically stable on arrival. ROS: -Neuro: Altered mental status *10 point review systems was conducted and is otherwise negative unless stated above *Outpatient medications and allergy history reviewed PE: General: Alert, NAD HEENT: Normocephalic, atraumatic Eyes: Extraocular eye movement is intact, no scleral erythema Pulmonary: Clear to auscultation bilaterally, no wheezing Cardio: Regular rate and rhythm GI: Abdomen is soft, nontender : No suprapubic tenderness MSK: No evidence of trauma or malformation of the extremities, no edema Skin: No evidence of rash Neuro: Alert, no focal deficits, ambulates all extremity spontaneously Psychiatric: Cooperative cardiac monitor technician: - An order was placed for continuous cardiac monitoring - Patient was noted to be in sinus rhythm with rate of 80 EKG: Rate: 98 Rhythm: Normal sinus rhythm Intervals: Within normal limits ST changes: No ST elevation Time: 1218 Medical Decision Making: Patient presented to the emergency department with her at the bedside over concern for confusion, this seems to have been an issue over about the past week and a half. On arrival here to the ED the patient is alert, she answers most of my questions appropriately but is slow to respond, she is able to tell me where she is and she is able to tell me the year but she is not able to tell me how old she is. She is able to follow commands appropriately and does not have any focal deficits on my initial exam. CT imaging of the head was obtained without contrast that does not show any evidence of an acute intracranial process Shortly after arrival IV was established, lab work obtained, lab work shows a leukocytosis, urinalysis is nitrite positive, blood cultures were drawn in the ED and patient was started on ceftriaxone. Lab work also shows evidence of multiple electrolyte abnormalities including a hyponatremia at 121, hypokalemia 3.1, hypomagnesemia. Magnesium was ordered to be repleted IV, potassium repleted orally. On my reassessment the patient is hemodynamically stable on the monitor and resting comfortably in bed, I did discuss the above findings with the patient's at the bedside, she has had similar presentation in regards to her electrolyte abnormalities this past April although she did not have altered mental status at that time, she did have significant hyponatremia. This was thought to be multifactorial in nature including polydipsia as well as diuretic therapy. Patient's tells me that she was recently restarted on hydrochlorothiazide just on January 01. I think this might be playing a role in her electrolyte abnormalities. Given her altered mental status and electrolyte abnormalities including significant hyponatremia, I did discuss the case with the on-call hospitalist for [facility], Dr. Ha, and the patient was admitted to monitored bed for further management of altered mental status, hyponatremia, hypokalemia, and hypomagnesemia as well as urinary tract infection. We will hold on any IV fluids at this time and defer fluid management to the hospitalist service in regards to hyponatremia Diagnosis: 1. Altered mental status 2. Hyponatremia 3. Hypomagnesemia 4. Hypokalemia 5. Leukocytosis 6. Urinary tract infection Disposition: Admission Alan Leong DO Emergency Medicine Past Med/Surg History Medical History Anal fissure Chronic constipation Chronic distal aortic occlusion Depression Endometriosis GERD without esophagitis Hiatal hernia Hypertension Hypertriglyceridemia Insomnia Long-term current use of benzodiazepine Osteoporosis Prediabetes PVD (peripheral vascular disease) Rectocele Vitamin D deficiency Surgical History H/O elbow surgery (09/18/21) S/P appendectomy S/P hysterectomy S/P shoulder surgery (2002) Family History Aunt Breast cancer Father Myocardial infarction Denies family history of Crohn's disease Colorectal cancer Ulcerative colitis Colonic polyp Social History Smoking Status: Former smoker Tobacco Type: Cigarettes Age Started Using Tobacco: 20; Age Quit Using Tobacco: 62; packs per day: 0.5; Second Hand Exposure: No; Hx Alcohol Use: Yes Alcohol type: hard liquor Alcohol Intake Frequency: Monthly or Less Hx Substance Use: No Preferred Language: Thai Communication Ability: Effective Visual Impairment: No Limitations Hearing Ability: Normal 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 Beliefs That Will Affect Care: None marital status: Current Living Situation: Family Current Living Situation Comment: , daughter, and 2 granddaughters current occupational status: other current occupation: Homemaker Feels Safe at Home: Yes Dental Care, Regularly: No Seatbelt Use: always Sunscreen Use: No Assistive Devices: Glasses Allergies Allergies Allergy/AdvReac Type Severity Reaction Status Date / Time Latex, Natural Rubber Allergy Mild Verified 10/10/21 07:00 Home Meds Home Medications Medication Instructions Recorded Confirmed denosumab 60 mg/mL subcutaneous 60 mg SUBCUT DIRECTED ml 01/05/21 10/10/21 syringe (Prolia) atorvastatin 40 mg tablet 40 mg PO DAILY 04/13/21 10/10/21 multivitamin [Daily Multivitamin] 1 tab PO DAILY 04/13/21 10/10/21 Previous Rx's Medication Instructions Recorded aspirin 81 mg tablet,delayed 81 mg PO DAILY #30 tab 09/28/20 release folic acid 0.8 mg capsule 0.8 mg PO DAILY #30 cap 09/28/20 lubiprostone 24 mcg capsule 24 mcg PO BID #180 cap 10/12/20 (Amitiza) cholecalciferol (vitamin D3) 50 50 mcg PO DAILY #90 cap 05/31/21 mcg (2,000 unit) capsule meloxicam 15 mg tablet 15 mg PO DAILY #30 tab 06/26/21 fluticasone propionate 50 2 spray INTRANASAL DAILY PRN #16 g 08/04/21 mcg/actuation nasal spray,suspension (Flonase Allergy Relief) benzonatate 200 mg capsule 200 mg PO TID PRN #21 cap 08/28/21 pantoprazole 40 mg tablet,delayed 40 mg PO BID #180 tab 09/28/21 release loratadine 10 mg tablet 10 mg PO DAILY #30 tab 10/10/21 amlodipine 2.5 mg tablet 2.5 mg PO PM #90 tab 11/16/21 albuterol sulfate 90 mcg/actuation 2 puff INHALATION Q6H PRN #18 g 11/21/21 aerosol inhaler cyclobenzaprine 5 mg tablet 5 mg PO DAILY PRN #30 tab 12/26/21 hydrochlorothiazide 25 mg tablet 25 mg PO DAILY PRN #30 tab 01/01/22 spironolactone 25 mg tablet 50 mg PO DAILY #90 tab 01/02/22 flurazepam 30 mg capsule 30 mg PO HS PRN #30 cap 01/03/22 Results & Data (ED) Vital Signs Vital Signs - 24 hr 01/09/22 11:57 01/09/22 13:35 01/09/22 14:54 Temperature 36.8 C Temperature Source Oral Pulse Rate 102 H Pulse Rate [Right Finger] 88 Respiratory Rate 17 20 Respiratory Effort / Characteristics Non-Labored Respiratory Depth Normal Blood Pressure 144/82 H Blood Pressure [Right Arm] 131/66 Blood Pressure Mean 102 Blood Pressure Mean [Right Arm] 87 Pulse Oximetry 98 97 Oxygen Delivery Method Room Air Room Air Room Air Sepsis Recent Fever Within 48 Hours No Sepsis New/Unexplained Change in Mental Status N/A Sepsis Action Taken by Nursing No Action Required Laboratory Data Result diagrams: 01/09/22 13:56 01/09/22 13:50 Lab Results 01/09/22 01/09/22 01/09/22 Range/Units 13:31 13:31 13:50 WBC (4.8-10.8) K/uL RBC (4.2-5.4) M/uL Hgb (12.0-16.0) g/dL Hct (37-47) % MCV (80-100) fL MCH (25-34) pg MCHC (32-36) g/dL RDW Std Deviation (36.4-46.3) fL RDW Coeff of Kaylynn (11.5-14.5) % Plt Count (130-400) K/uL MPV (7.4-10.4) fL Immature Gran % (Auto) % Neut % (Auto) % Lymph % (Auto) % [place] % (Auto) % Eos % (Auto) % Baso % (Auto) % Neut # (Auto) (1.4-6.5) K/uL Lymph # (Auto) (1.2-3.4) K/uL [place] # (Auto) (0.11-0.59) K/uL Eos # (Auto) (0-0.5) K/uL Baso # (Auto) (0-0.2) K/uL Immature Gran # (Auto) (0.00-0.02) K/uL PT 10.1 (9.0-12.0) Seconds INR 0.9 (0.9-1.1) APTT 26.6 (21.0-31.0) Seconds PTT Ratio 1.0 Sodium (136-145) mmol/L Potassium (3.5-5.1) mmol/L Chloride (98-107) mmol/L Carbon Dioxide (21-32) mmol/L Anion Gap (3-11) BUN (6-23) mg/dl Creatinine (0.6-1.2) mg/dl Est Cr Clr Drug Dosing ml/min Est GFR ( Amer) ml/min Est GFR (Non-Af Amer) ml/min BUN/Creatinine Ratio (10-20) Glucose (70-99(Fasting)) mg/dl Calcium (8.5-10.1) mg/dl Magnesium (1.7-2.4) mg/dl Total Bilirubin (0.2-1.0) mg/dl AST (13-39) U/L ALT (7-52) U/L Alkaline Phosphatase (34-104) U/L Ammonia (18-72) umol/L Total Protein (6.0-8.3) gm/dl Albumin (3.4-5.0) gm/dl Globulin (2.5-4.0) gm/dl Albumin/Globulin Ratio (0.9-2) TSH (0.300-4.500) uIu/ml Urine Color Yellow Urine Appearance Clear (Clear) Urine pH 7.5 (4.5-7.5) Ur Specific [place] 1.003 (1.000-1.030) Urine Protein Negative (Negative) Urine Glucose (UA) Negative (Negative) Urine Ketones Negative (Negative) Urine Blood Negative (Negative) Urine Nitrite Positive A (Negative) Urine Bilirubin Negative (Negative) Urine Urobilinogen Negative (Negative) Ur Leukocyte Esterase Negative (Negative) Urine WBC (Auto) 1-5 (0-5) /hpf Urine RBC (Auto) 0-4 (0-4) /hpf U Hyaline Cast (Auto) 0 (0-5) /lpf U Epithel Cells (Auto) 5-10 H (0-5) /lpf Urine Bacteria (Auto) 1+ H (Negative) Urine Opiates Screen Neg (Neg) Ur Methadone, Qual Neg (Neg) Urine Barbiturates Neg (Neg) Ur Phencyclidine (PCP) Neg (Neg) U Amphetamin/Meth Scrn Neg (Neg) MDMA (Ecstasy) Screen Neg (Neg) U Benzodiazepines Scrn Pos H (Neg) Ur Cocaine Metabolite Neg (Neg) U Marijuana (THC) Screen Neg (Neg) Ethyl Alcohol mg/dL (<10.0) mg/dl 01/09/22 01/09/22 01/09/22 Range/Units 13:50 13:50 13:50 WBC (4.8-10.8) K/uL RBC (4.2-5.4) M/uL Hgb (12.0-16.0) g/dL Hct (37-47) % MCV (80-100) fL MCH (25-34) pg MCHC (32-36) g/dL RDW Std Deviation (36.4-46.3) fL RDW Coeff of Kaylynn (11.5-14.5) % Plt Count (130-400) K/uL MPV (7.4-10.4) fL Immature Gran % (Auto) % Neut % (Auto) % Lymph % (Auto) % [place] % (Auto) % Eos % (Auto) % Baso % (Auto) % Neut # (Auto) (1.4-6.5) K/uL Lymph # (Auto) (1.2-3.4) K/uL [place] # (Auto) (0.11-0.59) K/uL Eos # (Auto) (0-0.5) K/uL Baso # (Auto) (0-0.2) K/uL Immature Gran # (Auto) (0.00-0.02) K/uL PT (9.0-12.0) Seconds INR (0.9-1.1) APTT (21.0-31.0) Seconds PTT Ratio Sodium 121 L (136-145) mmol/L Potassium 3.1 L (3.5-5.1) mmol/L Chloride 78 L (98-107) mmol/L Carbon Dioxide 32 (21-32) mmol/L Anion Gap 11 (3-11) BUN 4 L (6-23) mg/dl Creatinine 0.52 L (0.6-1.2) mg/dl Est Cr Clr Drug Dosing 74.5 ml/min Est GFR ( Amer) 117.0 ml/min Est GFR (Non-Af Amer) 101.0 ml/min BUN/Creatinine Ratio 7.7 L (10-20) Glucose 86 (70-99(Fasting)) mg/dl Calcium 9.4 (8.5-10.1) mg/dl Magnesium 1.5 L (1.7-2.4) mg/dl Total Bilirubin 0.5 (0.2-1.0) mg/dl AST 39 (13-39) U/L ALT 24 (7-52) U/L Alkaline Phosphatase 117 H (34-104) U/L Ammonia 32.0 (18-72) umol/L Total Protein 7.0 (6.0-8.3) gm/dl Albumin 3.8 (3.4-5.0) gm/dl Globulin 3.2 (2.5-4.0) gm/dl Albumin/Globulin Ratio 1.2 (0.9-2) TSH 4.478 (0.300-4.500) uIu/ml Urine Color Urine Appearance (Clear) Urine pH (4.5-7.5) Ur Specific [place] (1.000-1.030) Urine Protein (Negative) Urine Glucose (UA) (Negative) Urine Ketones (Negative) Urine Blood (Negative) Urine Nitrite (Negative) Urine Bilirubin (Negative) Urine Urobilinogen (Negative) Ur Leukocyte Esterase (Negative) Urine WBC (Auto) (0-5) /hpf Urine RBC (Auto) (0-4) /hpf U Hyaline Cast (Auto) (0-5) /lpf U Epithel Cells (Auto) (0-5) /lpf Urine Bacteria (Auto) (Negative) Urine Opiates Screen (Neg) Ur Methadone, Qual (Neg) Urine Barbiturates (Neg) Ur Phencyclidine (PCP) (Neg) U Amphetamin/Meth Scrn (Neg) MDMA (Ecstasy) Screen (Neg) U Benzodiazepines Scrn (Neg) Ur Cocaine Metabolite (Neg) U Marijuana (THC) Screen (Neg) Ethyl Alcohol mg/dL (<10.0) mg/dl 01/09/22 01/09/22 Range/Units 13:56 13:56 WBC 13.02 H (4.8-10.8) K/uL RBC 3.38 L (4.2-5.4) M/uL Hgb 12.2 (12.0-16.0) g/dL Hct 34.1 L (37-47) % MCV 100.9 H (80-100) fL MCH 36.1 H (25-34) pg MCHC 35.8 (32-36) g/dL RDW Std Deviation 51.9 H (36.4-46.3) fL RDW Coeff of Kaylynn 14.1 (11.5-14.5) % Plt Count 335 (130-400) K/uL MPV 9.0 (7.4-10.4) fL Immature Gran % (Auto) 0.4 % Neut % (Auto) 70.5 % Lymph % (Auto) 18.7 % [place] % (Auto) 9.2 % Eos % (Auto) 1.0 % Baso % (Auto) 0.2 % Neut # (Auto) 9.17 H (1.4-6.5) K/uL Lymph # (Auto) 2.44 (1.2-3.4) K/uL [place] # (Auto) 1.20 H (0.11-0.59) K/uL Eos # (Auto) 0.13 (0-0.5) K/uL Baso # (Auto) 0.03 (0-0.2) K/uL Immature Gran # (Auto) 0.05 H (0.00-0.02) K/uL PT (9.0-12.0) Seconds INR (0.9-1.1) APTT (21.0-31.0) Seconds PTT Ratio Sodium (136-145) mmol/L Potassium (3.5-5.1) mmol/L Chloride (98-107) mmol/L Carbon Dioxide (21-32) mmol/L Anion Gap (3-11) BUN (6-23) mg/dl Creatinine (0.6-1.2) mg/dl Est Cr Clr Drug Dosing ml/min Est GFR ( Amer) ml/min Est GFR (Non-Af Amer) ml/min BUN/Creatinine Ratio (10-20) Glucose (70-99(Fasting)) mg/dl Calcium (8.5-10.1) mg/dl Magnesium (1.7-2.4) mg/dl Total Bilirubin (0.2-1.0) mg/dl AST (13-39) U/L ALT (7-52) U/L Alkaline Phosphatase (34-104) U/L Ammonia (18-72) umol/L Total Protein (6.0-8.3) gm/dl Albumin (3.4-5.0) gm/dl Globulin (2.5-4.0) gm/dl Albumin/Globulin Ratio (0.9-2) TSH (0.300-4.500) uIu/ml Urine Color Urine Appearance (Clear) Urine pH (4.5-7.5) Ur Specific [place] (1.000-1.030) Urine Protein (Negative) Urine Glucose (UA) (Negative) Urine Ketones (Negative) Urine Blood (Negative) Urine Nitrite (Negative) Urine Bilirubin (Negative) Urine Urobilinogen (Negative) Ur Leukocyte Esterase (Negative) Urine WBC (Auto) (0-5) /hpf Urine RBC (Auto) (0-4) /hpf U Hyaline Cast (Auto) (0-5) /lpf U Epithel Cells (Auto) (0-5) /lpf Urine Bacteria (Auto) (Negative) Urine Opiates Screen (Neg) Ur Methadone, Qual (Neg) Urine Barbiturates (Neg) Ur Phencyclidine (PCP) (Neg) U Amphetamin/Meth Scrn (Neg) MDMA (Ecstasy) Screen (Neg) U Benzodiazepines Scrn (Neg) Ur Cocaine Metabolite (Neg) U Marijuana (THC) Screen (Neg) Ethyl Alcohol mg/dL < 10.0 (<10.0) mg/dl Imaging Data Radiologist's Impression: Chest X-Ray 01/09/22 12:02 XR chest 2V PA/lateral HISTORY: confusion COMPARISON: Chest 05/08/2021. FINDINGS: No pneumothorax. No pleural effusions. The heart is normal in size. Th ere are bibasilar linear densities consistent with subsegmental atelectasis or scarring. This is similar to the prior study. Otherwise, no new focal lung consolidations to suggest pneumonia. No evidence for pulmonary edema. Distal resection of the left clavicle again noted. IMPRESSION: No significant change compared to the prior study. No acute process. ACT 112: Negative or not required by law. Electronically signed by: Ray Martin M.D. 01/09/2022 1:[address] 01/09/22 13:10 CT head/brain wo con CLINICAL HISTORY: AMS x 10 days Technique: Contiguous axial CT images of the head were acquired from the base of the skull to the vertex without intravenous contrast administration. Images were viewed in brain, subdural and bone windows. Automated dose lowering techniques and/or adjustment according to patient size were utilized for this exam. Comparison: None available at the time of this dictation. Findings: Areas of decreased attenuation are present in the periventricular and subcortical white matter bilaterally consistent with small vessel ischemic disease. Generalized cerebral atrophy with commensurate enlargement of the ventricles, sulci, and cisterns is also present. There is no acute intracranial hemorrhage or evidence of acute territorial infarction. No shift of the midline structures, mass effect, or extra-axial abnormalities are shown. Atherosclerotic calcifications are present in the intracranial segments of the internal carotid arteries. Imaged portions of the paranasal sinuses and mastoid air cells are clear. The orbits appear normal. There are no acute fractures of the calvaria or scalp swelling. Impression: No acute intracranial hemorrhage, no evidence of acute territorial infarction or other acute intracranial disease process. ACT 112: Negative or not required by law. Electronically signed by: Thierry Cruz M.D. 01/09/2022 2:16 PM Discharge Plan Visit Data Chief Complaint: Confusion Stated Complaint: CONFUSION ED Provider: Alan Leong Discharge Problem: Acute hyponatremia Forms Stand Alone Forms: My [facility] [employer] Prescriptions Prescriptions: No Action lubiprostone [Amitiza] 24 mcg capsule 24 mcg PO BID Qty: 180 RF: 3 Prolia 60 mg/mL syringe 60 mg subcut DIRECTED RF: 0 meloxicam 15 mg tablet 15 mg PO DAILY Qty: 30 RF: 0 pantoprazole 40 mg tablet,delayed release (DR/EC) 40 mg PO BID Qty: 180 RF: 3 albuterol sulfate 90 mcg/actuation HFA aerosol inhaler 2 puff inhalation Q6H PRN (Reason: shortness of breath or wheezing) Qty: 18 RF: 3 cyclobenzaprine 5 mg tablet 5 mg PO DAILY PRN (Reason: muscle spasm) Qty: 30 RF: 0 hydrochlorothiazide 25 mg tablet 25 mg PO DAILY PRN (Reason: swelling) Qty: 30 RF: 3 spironolactone 25 mg tablet 50 mg PO DAILY Qty: 90 RF: 3 flurazepam 30 mg capsule 30 mg PO HS PRN (Reason: insomnia) Qty: 30 RF: 0 benzonatate 200 mg capsule 200 mg PO TID PRN (Reason: cough) Qty: 21 RF: 2 cholecalciferol (vitamin D3) 50 mcg (2,000 unit) capsule 50 mcg PO DAILY Qty: 90 RF: 1 amlodipine 2.5 mg tablet 2.5 mg PO PM Qty: 90 RF: 3 loratadine 10 mg tablet 10 mg PO DAILY Qty: 30 RF: 3 fluticasone propionate [Flonase Allergy Relief] 50 mcg/actuation spray,suspension 2 spray intranasal DAILY PRN (Reason: nasal congestion) Qty: 16 RF: 0 aspirin 81 mg tablet,delayed release (DR/EC) 81 mg PO DAILY Qty: 30 RF: 2 folic acid 0.8 mg capsule 0.8 mg PO DAILY Qty: 30 RF: 2 atorvastatin 40 mg tablet 40 mg PO DAILY RF: 0 multivitamin [Daily Multivitamin] 1 tab PO DAILY RF: 0 Referrals Referrals: Sienna Real DO [Primary Care Provider] -
[2022-01-09 13:54] LABS: Appearance Urine Clear (Clear); Bacteria Urine Automated 1+ (Negative); Bilirubin Urine Negative (Negative); Blood Urine Negative (Negative); Cast Urine Automated 0 /lpf (0-5); Color Urine Yellow; Glucose Urine UA Negative (Negative); Ketones Urine Negative (Negative); Leukocyte Esterase Urine Negative (Negative); Nitrite Urine Positive (Negative); Protein Urine Negative (Negative); RBC Urine Automated 0-4 /hpf (0-4); Specific Gravity Urine 1.003 (1.000-1.030); Urobilinogen Urine Negative (Negative); pH Urine 7.5 (4.5-7.5)
[2022-01-09 14:16] LABS: Basophils # (auto) 0.03 K/uL (0-0.2); Basophils % (auto) 0.2 %; Eosinophils # (auto) 0.13 K/uL (0-0.5); Hematocrit (blood only) 34.1 % (37-47); Hemoglobin 12.2 g/dL (12.0-16.0); Immature Granulocytes # (auto) 0.05 K/uL (0.00-0.02); Immature Granulocytes % (auto) 0.4 %; Lymphocytes # (auto) 2.44 K/uL (1.2-3.4); Lymphocytes % (auto) 18.7 %; Mean Corpuscular Hemoglobin 36.1 pg (25-34); Mean Corpuscular Hgb Conc 35.8 g/dL (32-36); Mean Corpuscular Volume 100.9 fL (80-100); Monocytes % (auto) 9.2 %; Neutrophils # (auto) 9.17 K/uL (1.4-6.5); Neutrophils % (auto) 70.5 %; Platelet Count 335 K/uL (130-400); RDW Coefficient of Variation 14.1 % (11.5-14.5); RDW Standard Deviation 51.9 fL (36.4-46.3); Red Blood Count 3.38 M/uL (4.2-5.4); White Blood Count 13.02 K/uL (4.8-10.8)
--- NOTE | 2022-01-09 14:17 | CT Scan Report ---
CT head/brain wo con CLINICAL HISTORY: AMS x 10 days Technique: Contiguous axial CT images of the head were acquired from the base of the skull to the natalie raji without intravenous contrast administration. Images were viewed in brain, subdural and [facility]. Automated dose lowering techniques and/or adjustment according to patient size were utilized for this exam. Comparison: None available at the time of this dictation. Findings: Areas of decreased attenuation are present in the periventricular and subcortical white matter bilate rally consistent with small vessel ischemic disease. Generalized cerebral atrophy with commensurate e nlargement of the ventricles, sulci, and cisterns is also present. There is no acute intracranial hem orrhage or evidence of acute territorial infarction. No shift of the midline structures, mass effect, or extra-axial abnormalities are shown. Atherosclerotic calcifications are present in the intracran ial segments of the internal carotid arteries. Imaged portions of the paranasal sinuses and mastoid air cells are clear. The orbits appear normal. There are no acute fractures of the calvaria or scalp swelling. Impression: No acute intracranial hemorrhage, no evidence of acute territorial infarction or other acute intracra nial disease process. ACT 112: Negative or not required by law. Electronically signed by: Thierry Cruz M.D. 01/09/2022 2:16 PM
[2022-01-09 14:21] LABS: INR 0.9 (0.9-1.1); Partial Thromboplastin Time 26.6 Seconds (21.0-31.0); Prothrombin Time 10.1 Seconds (9.0-12.0)
[2022-01-09 14:37] LABS: Albumin Globulin Ratio 1.2 (0.9-2); Albumin Level 3.8 gm/dl (3.4-5.0); BUN Creatinine Ratio 7.7 (10-20); Bilirubin,Total 0.5 mg/dl (0.2-1.0); Calcium 9.4 mg/dl (8.5-10.1); Creatinine Clr Calc Pharmacy 74.5 ml/min; Globulin 3.2 gm/dl (2.5-4.0); Magnesium 1.5 mg/dl (1.7-2.4); Potassium 3.1 mmol/L (3.5-5.1)
[2022-01-09 14:41] LABS: Amphetamines+Metham, Urine Neg (Neg); Barbiturates, Urine Neg (Neg); Benzodiazepine, Urine Pos (Neg); Cocaine, Urine Neg (Neg); MDMA (Ecstacy), Urine Neg (Neg); Methadone, Urine Neg (Neg); Opiate, Urine Neg (Neg); Phencyclidine, Urine Neg (Neg)
--- NOTE | 2022-01-09 15:07 | Electrocardiogram Report ---
Test Reason : Blood Pressure : / mmHG Vent. Rate : 098 BPM Atrial Rate : 098 BPM P-R Int : 120 ms QRS Dur : 070 ms QT Int : 354 ms P-R-T Axes : 084 060 074 degrees QTc Int : 451 ms Normal sinus rhythm Possible Left atrial enlargement Poor R wave progression, consider anterior VT vs. lead placement vs. LVH Abnormal ECG When compared with ECG of 09-MAY-2021 06:07, No significant change was found Confirmed by Judah Ahumada ([id number]) on 01/09/2022 3:06:47 PM Referred By: REFERRED SELF Confirmed By:Judah Ahumada
[2022-01-09] MEDS ORDERED: POTASSIUM CHLORIDE CRTAB 20 MEQ TABCR PO STA (15:28)
[2022-01-09] MEDS ORDERED: cefTRIAXone SODIUM 1,000 MG/50 ML BAG IV STA (15:33)
[2022-01-09] MEDS: MAGNESIUM SULFATE / D5W 1 GM/100 ML BAG IV SCH ×2 (15:39→17:16)
--- NOTE | 2022-01-09 15:54 | History & Physical Report ---
Date of Service January 09, 2022 Assessment & Plan (1) Hyponatremia: Plan: - Na 121, with new onset confusion. Likely decreased in the setting of HCTZ being restarted several days before confusion began. Patient also drinks at least an estimated 3L water/day. - Urine osm and Na pending, serum osm 240. - Will free water restrict, also getting potassium repletion which will help with sodium correction. Aim for increase in Na by 6-8 mmol/24 hours. - LR at 80 cc/hr for 1L. - Recheck sodium on BMP in AM. (2) Hypokalemia: Plan: - 3.1 in ED, repleted in ED with 40 mEq po KCl; recheck in AM. - Likely due to diuretic use; hold HCTZ. (3) Hypomagnesemia: Plan: - 1.5 in ED, replete and recheck with AM labs. (4) Abnormal urine: Plan: - Leukocytosis, UA with nitrite and 1+ bacteria. - Received ceftriaxone in ED. She is currently asymptomatic, but does have elevated WBC. Will continue abx for now given this, however suspect confusion is a result of her hyponatremia and less likely from a UTI. (5) PVD (peripheral vascular disease): Plan: - Continue aspirin, statin. (6) Hypertension: Plan: - Holding HCTZ, spironolactone (which seem to be more for her b/l LE edema, cause unknown). - Can continue amlodipine, however may consider switching to a different antihypertensive as outpt as amlodipine may be causing her LE edema. (7) Dyslipidemia: Plan: - Continue statin. (8) Insomnia: Plan: - Continue flurazepam 30 mg at night as needed. - Cannot tolerate substitutions, if not on hospital formulary, will bring in her medication. (9) IBS (irritable bowel syndrome): Plan: - Continue Amitiza. (10) Allergic rhinitis: Plan: - Continue Flonase and Claritin. (11) GERD without esophagitis: Plan: - Continue Protonix 40 mg twice daily. (12) Chronic distal aortic occlusion: Plan: - Stable, follows with vascular. (13) COPD (chronic obstructive pulmonary disease): Plan: - Stable, no acute exacerbation today, Smokes socially, less than 1 pack per week. Not requesting nicotine patch. - Albuterol inhaler Q6h prn. Plan: - Admit to med/tele. - SCDs, Lovenox for DVT ppx. - Ful Code. History of Present Illness Chief Complaint: confusion x 5 days Primary Care Provider: Sienna Real DO Patient is a 66-year-old female with past medical history of hypertension, hyperlipidemia, PVD, ongoing tobacco use, COPD, allergic rhinitis, IBS, and GERD who presents today with 5 days of confusion. Patient recently had hydroch lorothiazide restarted and spironolactone doubled to 50 mg daily on January 01 for ongoing issues with bilateral lower extremity edema. 3 days later on , January 03, patient started to become confused. She has been more slow at home performing her daily routine, has been asking her frequently to confirm she is doing things correctly. She seems confused as to what medications she should be taking. This is all very new for her, she does have a family history of Alzheimer's in her mother, but prior to this she had been alert and oriented and independent at home. No recent head injuries or substance use. Otherwise without complaints, no fever/chills,weakness, chest pain, SOB, cough, abdominal pain, n/v, diarrhea, constipation, or urinary symptoms. In ED, labs significant for WBC 13.02, sodium 121, potassium 3.1, chloride 78, magnesium 1.5, UA with nitrites, [address] bacteria. CXR and head [address] unremarkable. Allergies Allergy/AdvReac Type Severity Reaction Status Date / Time Latex, Natural Rubber Allergy Intermediate GLOVES--HANDS Verified 01/09/22 15:57 SWELLED AND ITCHY Home Medications Medication Instructions Recorded Confirmed Type aspirin 81 mg tablet,delayed 81 mg PO DAILY #30 tab 09/28/20 01/09/22 Rx release folic acid 0.8 mg capsule 0.8 mg PO DAILY #30 cap 09/28/20 01/09/22 Rx lubiprostone 24 mcg capsule 24 mcg PO BID #180 cap 10/12/20 01/09/22 Rx (Amitiza) denosumab 60 mg/mL subcutaneous 60 mg SUBCUT DIRECTED ml 01/05/21 01/09/22 History syringe (Prolia) atorvastatin 40 mg tablet 40 mg PO DAILY 04/13/21 01/09/22 History meloxicam 15 mg tablet 15 mg PO DAILY #30 tab 06/26/21 01/09/22 Rx fluticasone propionate 50 2 spray INTRANASAL DAILY PRN #16 g 08/04/21 01/09/22 Rx mcg/actuation nasal spray,suspension (Flonase Allergy Relief) pantoprazole 40 mg tablet,delayed 40 mg PO BID #180 tab 09/28/21 01/09/22 Rx release loratadine 10 mg tablet 10 mg PO DAILY #30 tab 10/10/21 01/09/22 Rx amlodipine 2.5 mg tablet 2.5 mg PO PM #90 tab 11/16/21 01/09/22 Rx albuterol sulfate 90 mcg/actuation 2 puff INHALATION Q6H PRN #18 g 11/21/21 01/09/22 Rx aerosol inhaler cyclobenzaprine 5 mg tablet 5 mg PO DAILY PRN #30 tab 12/26/21 01/09/22 Rx hydrochlorothiazide 25 mg tablet 25 mg PO DAILY PRN #30 tab 01/01/22 01/09/22 Rx spironolactone 25 mg tablet 50 mg PO DAILY #90 tab 01/02/22 01/09/22 Rx flurazepam 30 mg capsule 30 mg PO HS PRN #30 cap 01/03/22 01/09/22 Rx ergocalciferol (vitamin D2) 1,250 1,250 mcg PO WK 01/09/22 01/09/22 History mcg (50,000 unit) capsule (Vitamin D2) multivitamin with minerals 1 tab PO DAILY 01/09/22 01/09/22 History senna leaves (bulk) 1 ea MISCELLANEOUS BID 01/09/22 01/09/22 History Past Med/Surg History Medical History (Updated 01/09/22 @ 17:55 by Dorota Em PA-C) Anal fissure Chronic constipation Chronic distal aortic occlusion Depression Endometriosis GERD without esophagitis Hiatal hernia Hypertension Hypertriglyceridemia Hypokalemia Insomnia Long-term current use of benzodiazepine Osteoporosis Prediabetes PVD (peripheral vascular disease) Rectocele Vitamin D deficiency Surgical History H/O elbow surgery (09/18/21) L radial head arthroplasty S/P appendectomy 1974 S/P hysterectomy 1990 S/P shoulder surgery (2002) Left Family History Aunt Breast cancer Father Myocardial infarction Denies family history of Crohn's disease Colorectal cancer Ulcerative colitis Colonic polyp Social History Smoking Status: Former smoker Tobacco Type: Cigarettes Age Started Using Tobacco: 20; Age Quit Using Tobacco: 62; packs per day: 0.5; Second Hand Exposure: No; Hx Alcohol Use: Yes Alcohol type: hard liquor Alcohol Intake Frequency: Monthly or Less Hx Substance Use: No Preferred Language: Swedish Communication Ability: Effective Visual Impairment: No Limitations Hearing Ability: Normal Lead Network Architect Required: No Beliefs That Will Affect Care: None marital status: Current Living Situation: Family Current Living Situation Comment: , daughter, and 2 granddaughters current occupational status: other current occupation: Homemaker Feels Safe at Home: Yes Dental Care, Regularly: No Seatbelt Use: always Sunscreen Use: No Assistive Devices: Glasses Review of Systems Review of Systems: Constitutional: No fever/chills, weakness, fatigue, myalgias, anorexia, night sweats Eyes: No diplopia, no worsening or blurred vision ENT: normal hearing, no trouble swallowing Respiratory: No cough, sputum, dyspnea at rest or on exertion Cardiovascular: No chest pain, tightness or palpitations Abdomen: No pain, nausea, vomiting, diarrhea or constipation : Denies dysuria, hematuria, increased urgency/frequency, urinary retention Musculoskeletal: No joint pain, calf pain, swelling Neurologic: acute confusion over the past 5 days; No weakness, numbness/tingling, or balance problems Psychiatric: No anxiety or depression Skin: No rash or itch Physical Exam Physical Exam: General: awake, alert, oriented to place and year, uncertain of age; hesitant to answer questions, often looks to for assistance with interview; however no apparent distress Head: Normocephalic, atraumatic ENT: PERRL, EOMI, no pharyngeal exudate, mucous membranes moist Chest: Clear to auscultation, on room air, no adventitious breath sounds Cardiac: Regular rate and rhythm, no murmur, no JVD, normal peripheral pulses, good capillary refill Abdominal: NABS x 4 quadrants, soft, nontender to palpation, no rebound, guarding or tenderness Extremities: Normal inspection, no peripheral edema or erythema, calfs nontender to palpation Psych: Normal mood and affect Neuro: AAO x 3, strength intact bilaterally and rated 5/5, no motor deficits, speech is clear, no peripheral sensory deficits Skin: no rash or erythema Results & Data Results & Data ([facility]) Vital Signs (Past 12 Hours) Vital Signs Temp Pulse Pulse Resp BP BP Pulse Ox 01/09/22 14:54 88 20 131/66 97 01/09/22 11:57 36.8 C 102 H 17 144/82 H 98 Laboratory Results Abnormal lab results 01/09/22 01/09/22 01/09/22 Range/Units 13:31 13:31 13:50 WBC (4.8-10.8) K/uL RBC (4.2-5.4) M/uL Hct (37-47) % MCV (80-100) fL MCH (25-34) pg RDW Std Deviation (36.4-46.3) fL Neut # (Auto) (1.4-6.5) K/uL Crowley # (Auto) (0.11-0.59) K/uL Immature Gran # (Auto) (0.00-0.02) K/uL Sodium 121 L (136-145) mmol/L Potassium 3.1 L (3.5-5.1) mmol/L Chloride 78 L (98-107) mmol/L BUN 4 L (6-23) mg/dl Creatinine 0.52 L (0.6-1.2) mg/dl BUN/Creatinine Ratio 7.7 L (10-20) Magnesium 1.5 L (1.7-2.4) mg/dl Alkaline Phosphatase 117 H (34-104) U/L Urine Nitrite Positive A (Negative) U Epithel Cells (Auto) 5-10 H (0-5) /lpf Urine Bacteria (Auto) 1+ H (Negative) U Benzodiazepines Scrn Pos H (Neg) 01/09/22 Range/Units 13:56 WBC 13.02 H (4.8-10.8) K/uL RBC 3.38 L (4.2-5.4) M/uL Hct 34.1 L (37-47) % MCV 100.9 H (80-100) fL MCH 36.1 H (25-34) pg RDW Std Deviation 51.9 H (36.4-46.3) fL Neut # (Auto) 9.17 H (1.4-6.5) K/uL Crowley # (Auto) 1.20 H (0.11-0.59) K/uL Immature Gran # (Auto) 0.05 H (0.00-0.02) K/uL Sodium (136-145) mmol/L Potassium (3.5-5.1) mmol/L Chloride (98-107) mmol/L BUN (6-23) mg/dl Creatinine (0.6-1.2) mg/dl BUN/Creatinine Ratio (10-20) Magnesium (1.7-2.4) mg/dl Alkaline Phosphatase (34-104) U/L Urine Nitrite (Negative) U Epithel Cells (Auto) (0-5) /lpf Urine Bacteria (Auto) (Negative) U Benzodiazepines Scrn (Neg) Diagnostic Findings Chest X-Ray 01/09/22 12:02 XR chest 2V PA/lateral HISTORY: confusion COMPARISON: Chest 05/08/2021. FINDINGS: No pneumothorax. No pleural effusions. The heart is normal in size. There are bibasilar linear densities consistent with subsegmental atelectasis or scarring. This is similar to the prior study. Otherwise, no new focal lung consolidations to suggest pneumonia. No evidence for pulmonary edema. Distal resection of the left clavicle again noted. IMPRESSION: No significant change compared to the prior study. No acute process. ACT 112: Negative or not required by law. Electronically signed by: Ray Martin M.D. 01/09/2022 1:[address] 01/09/22 13:10 CT head/brain wo con CLINICAL HISTORY: AMS x 10 days Technique: Contiguous axial CT images of the head were acquired from the base of the skull to the vertex without intravenous contrast administration. Images were viewed in brain, subdural and bone windows. Automated dose lowering techniques and/or adjustment according to patient size were utilized for this exam. Comparison: None available at the time of this dictation. Findings: Areas of decreased attenuation are present in the periventricular and subcortical white matter bilaterally consistent with small vessel ischemic disease. Generalized cerebral atrophy with commensurate enlargement of the ventricles, sulci, and cisterns is also present. There is no acute intracranial hemorrhage or evidence of acute territorial infarction. No shift of the midline structures, mass effect, or extra-axial abnormalities are shown. Atherosclerotic calcifications are present in the intracranial segments of the internal carotid arteries. Imaged portions of the paranasal sinuses and mastoid air cells are clear. The orbits appear normal. There are no acute fractures of the calvaria or scalp swelling. Impression: No acute intracranial hemorrhage, no evidence of acute territorial infarction or other acute intracranial disease process. ACT 112: Negative or not required by law. Electronically signed by: Thierry Cruz M.D. 01/09/2022 2:16 PM ECG Additional Comments: Normal sinus rhythm Possible Left atrial enlargement Poor R wave progression, consider anterior LA vs. lead placement vs. LVH Abnormal ECG When compared with ECG of 09-MAY-2021 06:07, No significant change was found. Code Status & VTE Plan Code Status Full Code. Supervising Physician Co-Signing Physician Notes Patient was seen and examined independently I discussed the case with Dorota LAND I reviewed pertinent past medical social family history and also the plan of care and agree with the plan of care. Patient presents with recurrent hyponatremia and hypokalemia patient is a history of similar in the past which was suspected to be due from excess water drinking. Patient's notes increasing forgetfulness and perhaps some urinary symptoms Last time she was admitted she improved with volume restriction, she is putting out a very dilute urine currently which may fit with excess water drinking again Physical exam is nondescript with exception of complaints that she go to urinate which may fit with excess water drinking. We will fluid restrict to replete her electrolyte abnormalities and reevaluate her perhaps a psych consult may be warranted if she is having difficulties with excess water drinking Any exceptions will be noted below PG Care Time/CCT Total # of Minutes Spent Total Time Spent with Patient: Total time spent is greater than 50% in coordination of care (as documented) at patient's floor/unit and/or counseling patient: Coding Level of Care Code 26335 Initial Inpt Care Lvl 3 Diagnoses Hyponatremia E87.1 PVD (peripheral vascular disease) I73.9 Hypertension I10 Dyslipidemia E78.5 Chronic distal aortic occlusion I74.09 Insomnia G47.00 IBS (irritable bowel syndrome) K58.9 Allergic rhinitis J30.9 GERD without esophagitis K21.9 Hypokalemia E87.6 Hypomagnesemia E83.42 Abnormal urine R82.90 COPD (chronic obstructive pulmonary disease) J44.9
[2022-01-09] MEDS: LACTATED RINGER'S 1,000 ML IV SCH (19:16)
[2022-01-09] MEDS ORDERED: FLUTICASONE PROPIONATE NA SPR 16 GM BTL PRN (20:51)
[2022-01-09] MEDS ORDERED: ACETAMINOPHEN 325 MG TAB PO PRN (20:51)
[2022-01-09] MEDS ORDERED: ALBUTEROL HFA 8 GM INHALER INH PRN (20:51)
[2022-01-09] MEDS ORDERED: POLYETHYLENE (MIRALAX) 17 GM PACK PO PRN (20:51)
[2022-01-09] MEDS ORDERED: ONDANSETRON INJ 2 MG/ML 2 ML VIAL IV PRN (20:51)
[2022-01-09] MEDS ORDERED: ENOXAPARIN INJ 40 MG/0.4 ML SYR SQ SCH (21:00)
[2022-01-09] MEDS: amLODIPine BESYLATE 5 MG TAB PO SCH (23:24)
[2022-01-09] MEDS: LUBIPROSTONE 8 MCG CAP PO SCH (23:24)
[2022-01-09] MEDS: PANTOprazole 40 MG TAB PO SCH (23:24)
[2022-01-10 05:03] LABS: Basophils # (auto) 0.05 K/uL (0-0.2); Basophils % (auto) 0.6 %; Eosinophils # (auto) 0.21 K/uL (0-0.5); Eosinophils % (auto) 2.4 %; Hematocrit (blood only) 32.3 % (37-47); Hemoglobin 11.5 g/dL (12.0-16.0); Immature Granulocytes # (auto) 0.03 K/uL (0.00-0.02); Immature Granulocytes % (auto) 0.3 %; Lymphocytes # (auto) 2.34 K/uL (1.2-3.4); Lymphocytes % (auto) 26.7 %; Mean Corpuscular Hemoglobin 36.6 pg (25-34); Mean Corpuscular Hgb Conc 35.6 g/dL (32-36); Mean Corpuscular Volume 102.9 fL (80-100); Mean Platelet Volume 8.6 fL (7.4-10.4); Monocytes # (auto) 1.29 K/uL (0.11-0.59); Monocytes % (auto) 14.7 %; Neutrophils # (auto) 4.84 K/uL (1.4-6.5); Neutrophils % (auto) 55.3 %; Platelet Count 341 K/uL (130-400); RDW Coefficient of Variation 14.1 % (11.5-14.5); Red Blood Count 3.14 M/uL (4.2-5.4); White Blood Count 8.76 K/uL (4.8-10.8)
[2022-01-10 05:35] LABS: BUN Creatinine Ratio 6.8 (10-20); Calcium 8.4 mg/dl (8.5-10.1); Creatinine Clr Calc Pharmacy 67.4 ml/min; Est GFR (African American) 112.3 ml/min; Est GFR (Non-African American) 96.9 ml/min; Potassium 3.8 mmol/L (3.5-5.1)
[2022-01-10] MEDS: ASPIRIN 81 MG ECTAB PO SCH (07:47)
[2022-01-10] MEDS: MELOXICAM 7.5 MG TAB PO SCH (07:47)
[2022-01-10] MEDS: CYCLOBENZAPRINE HCL 5 MG TAB PO PRN (07:47)
[2022-01-10] MEDS: ATORVASTATIN 40 MG TAB PO SCH (07:47)
[2022-01-10] MEDS: FOLIC ACID 400 MCG TAB PO SCH (07:48)
[2022-01-10] MEDS: LORATADINE 10 MG TAB PO SCH (07:48)
[2022-01-10] MEDS: PANTOprazole 40 MG TAB PO SCH ×2 (07:48→21:10)
[2022-01-10] MEDS: LUBIPROSTONE 8 MCG CAP PO SCH ×2 (07:48→21:42)
--- NOTE | 2022-01-10 11:55 | Hospitalist Progress Note ---
Date of Service January 10, 2022 Assessment & Plan (1) Hyponatremia: Plan: - Admitted with a Na 121, with new onset confusion. Likely decreased in the setting of HCTZ being restarted several days before confusion began. Patient also drinks at least an estimated 3L water/day. Serum sodium now improved to 124 after fluid restriction - Recheck sodium on BMP in AM. (2) Acute encephalopathy: Plan: Acute metabolic encephalopathy, secondary to hyponatremia Now resolved Patient at baseline mentation (3) Hypokalemia: Plan: - Now resolved (4) Hypomagnesemia: Plan: - now resolved (5) Abnormal urine: Plan: - Leukocytosis, UA with nitrite and 1+ bacteria. - Received ceftriaxone in ED. She is currently asymptomatic, but does have elevated WBC. Will continue abx for now given this, however suspect confusion is a result of her hyponatremia and less likely from a UTI. (6) PVD (peripheral vascular disease): Plan: - Continue aspirin, statin. (7) Hypertension: Plan: - Holding HCTZ, spironolactone (which seem to be more for her b/l LE edema, cause unknown). - Can continue amlodipine, however may consider switching to a different antihypertensive as outpt as amlodipine may be causing her LE edema. (8) Dyslipidemia: Plan: - Continue statin. (9) Insomnia: Plan: - Continue flurazepam 30 mg at night as needed. - Cannot tolerate substitutions, if not on hospital formulary, will bring in her medication. (10) IBS (irritable bowel syndrome): Plan: - Continue Amitiza. (11) Allergic rhinitis: Plan: - Continue Flonase and Claritin. (12) GERD without esophagitis: Plan: - Continue Protonix 40 mg twice daily. (13) Chronic distal aortic occlusion: Plan: - Stable, follows with vascular. (14) COPD (chronic obstructive pulmonary disease): Plan: - Stable, no acute exacerbation today, Smokes socially, less than 1 pack per week. Not requesting nicotine patch. - Albuterol inhaler Q6h prn. Plan: - Admit to med/tele. - SCDs, Lovenox for DVT ppx. - Ful Code. Admission and Anticipated Discharge Date Admission Date: January 09, 2022 Subjective patient seen and examined today, no new complaints Review of Systems Review of Systems: All systems reviewed are negative, apart from the ones contained in the history. Physical Exam Physical Exam: The patient is awake, alert and oriented 3, well developed and well nourished, normocephalic and atraumatic, lying in bed and in no acute distress. HEENT--PERRL, EOMI, mucous membranes and oropharynx mildly dry Neck--supple. No JVD. No bruits. Thyroid normal, trachea midline, no adenopathy. Heart--normal S1 and S2. No murmurs, rubs or gallops. Lungs--clear bilaterally, no respiratory distress, no accessory muscle use. Abdomen--normal bowel sounds and soft. Mild epigastric and left sided abdominal pain Extremities--no cyanosis or clubbing. No edema. Dermatologic--normal skin turgor, normal color, no abnormal lymph nodes, no rash. Neurologic--cranial nerves II through XII grossly intact. Rheumatologic--normal range of motion. Psychiatric--normal affect. Results & Data Results & Data ([facility]) Vital Signs (Past 12 Hours) Vital Signs Temp Pulse Pulse Resp BP Pulse Ox 01/10/22 11:21 98.1 F 105 H 20 97/63 L 91 01/10/22 07:38 97.9 F 93 H 20 106/68 90 01/10/22 07:13 89 01/10/22 03:59 84 PG Care Time/CCT Total # of Minutes Spent Total Time Spent with Patient: Total time spent is greater than 50% in coordination of care (as documented) at patient's floor/unit and/or counseling patient: Coding Level of Care Code 52689 Subseq Hosp Care Lvl 2 Diagnoses Hyponatremia E87.1 Hypokalemia E87.6 Hypomagnesemia E83.42 Abnormal urine R82.90 PVD (peripheral vascular disease) I73.9 Hypertension I10 Dyslipidemia E78.5 Insomnia G47.00 IBS (irritable bowel syndrome) K58.9 Allergic rhinitis J30.9 GERD without esophagitis K21.9 Chronic distal aortic occlusion I74.09 COPD (chronic obstructive pulmonary disease) J44.9 Acute encephalopathy G93.40 Time Spent (min) 35
[2022-01-10] MEDS: cefTRIAXone SODIUM 1,000 MG in DEXTROSE 5% 50 ML IV SCH (15:52)
[2022-01-10] MEDS: amLODIPine BESYLATE 5 MG TAB PO SCH (21:10)
[2022-01-10] MEDS: LACTATED RINGER'S 1,000 ML IV SCH (21:21)
[2022-01-11] MEDS: SODIUM CHLORIDE 1 GM TABLET PO SCH ×3 (00:08→20:20)
[2022-01-11 05:16] LABS: Hematocrit (blood only) 30.7 % (37-47); Hemoglobin 10.8 g/dL (12.0-16.0); Mean Corpuscular Hemoglobin 36.5 pg (25-34); Mean Corpuscular Hgb Conc 35.2 g/dL (32-36); Mean Corpuscular Volume 103.7 fL (80-100); Mean Platelet Volume 8.6 fL (7.4-10.4); Platelet Count 320 K/uL (130-400); RDW Coefficient of Variation 14.8 % (11.5-14.5); RDW Standard Deviation 56.5 fL (36.4-46.3); Red Blood Count 2.96 M/uL (4.2-5.4); White Blood Count 8.13 K/uL (4.8-10.8)
[2022-01-11 05:28] LABS: BUN Creatinine Ratio 9.8 (10-20); Calcium 7.7 mg/dl (8.5-10.1); Est GFR (African American) 117.8 ml/min; Est GFR (Non-African American) 101.6 ml/min; Potassium 3.6 mmol/L (3.5-5.1)
[2022-01-11] MEDS: LUBIPROSTONE 8 MCG CAP PO SCH ×2 (08:20→20:20)
[2022-01-11] MEDS: PANTOprazole 40 MG TAB PO SCH ×2 (08:21→20:20)
[2022-01-11] MEDS: ATORVASTATIN 40 MG TAB PO SCH (08:21)
[2022-01-11] MEDS: FOLIC ACID 400 MCG TAB PO SCH (08:21)
[2022-01-11] MEDS: LORATADINE 10 MG TAB PO SCH (08:21)
[2022-01-11] MEDS: ASPIRIN 81 MG ECTAB PO SCH (08:21)
[2022-01-11] MEDS: MELOXICAM 7.5 MG TAB PO SCH (08:22)
[2022-01-11] MEDS: LACTATED RINGER'S 1,000 ML IV SCH ×2 (09:58→20:21)
--- NOTE | 2022-01-11 13:09 | Hospitalist Progress Note ---
Date of Service January 11, 2022 Assessment & Plan (1) Hyponatremia: Plan: - Admitted with a Na 121, with new onset confusion. Likely iatrogenic on account of HCTZ being restarted several days before confusion began. Patient also drinks at least an estimated 3L water/day. Serum sodium now improved to 129 after fluid restriction, will continue - Recheck sodium on BMP in AM. (2) Acute encephalopathy: Plan: Acute metabolic encephalopathy, secondary to hyponatremia Now resolved Patient at baseline mentation (3) Hypokalemia: Plan: - Now resolved (4) Hypomagnesemia: Plan: - now resolved (5) Abnormal urine: Plan: - Leukocytosis, UA with nitrite and 1+ bacteria. - Received ceftriaxone in ED. She is currently asymptomatic, but does have elevated WBC. Will continue abx for now given this, however suspect confusion is a result of her hyponatremia and less likely from a UTI. (6) PVD (peripheral vascular disease): Plan: - Continue aspirin, statin. (7) Hypertension: Plan: - Holding HCTZ, spironolactone (which seem to be more for her b/l LE edema, cause unknown). - Can continue amlodipine, however may consider switching to a different antihypertensive as outpt as amlodipine may be causing her LE edema. (8) Dyslipidemia: Plan: - Continue statin. (9) Insomnia: Plan: - Continue flurazepam 30 mg at night as needed. - Cannot tolerate substitutions, if not on hospital formulary, will bring in her medication. (10) IBS (irritable bowel syndrome): Plan: - Continue Amitiza. (11) Allergic rhinitis: Plan: - Continue Flonase and Claritin. (12) GERD without esophagitis: Plan: - Continue Protonix 40 mg twice daily. (13) Chronic distal aortic occlusion: Plan: - Stable, follows with vascular. (14) COPD (chronic obstructive pulmonary disease): Plan: - Stable, no acute exacerbation today, Smokes socially, less than 1 pack per week. Not requesting nicotine patch. - Albuterol inhaler Q6h prn. Plan: - hopefully d/c in the next 24 hrs - SCDs, Lovenox for DVT ppx. - Ful Code. Admission and Anticipated Discharge Date Admission Date: January 09, 2022 Subjective patient seen and examined today, no new complaints, denies SOB Review of Systems Review of Systems: All systems reviewed are negative, apart from the ones contained in the history. Physical Exam Physical Exam: The patient is awake, alert and oriented 3, well developed and well nourished, normocephalic and atraumatic, lying in bed and in no acute distress. HEENT--PERRL, EOMI, mucous membranes and oropharynx mildly dry Neck--supple. No JVD. No bruits. Thyroid normal, trachea midline, no adenopathy. Heart--normal S1 and S2. No murmurs, rubs or gallops. Lungs--clear bilaterally, no respiratory distress, no accessory muscle use. Abdomen--normal bowel sounds and soft. Mild epigastric and left sided abdominal pain Extremities--no cyanosis or clubbing. No edema. Dermatologic--normal skin turgor, normal color, no abnormal lymph nodes, no rash. Neurologic--cranial nerves II through XII grossly intact. Rheumatologic--normal range of motion. Psychiatric--normal affect. Results & Data Results & Data ([facility]) Vital Signs (Past 12 Hours) Vital Signs Temp Pulse Pulse Resp BP BP Pulse Ox 01/11/22 10:46 97.7 F 93 H 20 109/73 92 01/11/22 07:45 95 H 01/11/22 07:10 98.1 F 92 H 16 122/76 90 01/11/22 04:00 97.9 F 87 18 112/74 91 01/11/22 01:45 91 H PG Care Time/CCT Total # of Minutes Spent Total Time Spent with Patient: Total time spent is greater than 50% in coordination of care (as documented) at patient's floor/unit and/or counseling patient: Coding Level of Care Code 43093 Subseq Hosp Care Lvl 2 Diagnoses Hyponatremia E87.1 Acute encephalopathy G93.40 Hypokalemia E87.6 Hypomagnesemia E83.42 Abnormal urine R82.90 PVD (peripheral vascular disease) I73.9 Hypertension I10 Dyslipidemia E78.5 Insomnia G47.00 IBS (irritable bowel syndrome) K58.9 Allergic rhinitis J30.9 GERD without esophagitis K21.9 Chronic distal aortic occlusion I74.09 COPD (chronic obstructive pulmonary disease) J44.9 Time Spent (min) 35
[2022-01-11] MEDS: cefTRIAXone SODIUM 1,000 MG in DEXTROSE 5% 50 ML IV SCH (13:48)
[2022-01-11] MEDS: amLODIPine BESYLATE 5 MG TAB PO SCH (20:20)
[2022-01-11 21:27] LABS: 7-Aminoclonaz, Confirm NEGATIVE ng/mL (<25); Hydro-Alp Ur, GC/MS NEGATIVE ng/mL (<25); Hydroxyethylflurazepam, Conf 687 ng/mL (<50); Hydroxymidazolam Ur, GC/MS NEGATIVE ng/mL (<50); Hydroxytriazolam NEGATIVE ng/mL (<50); Lorazepam, Ur GC/MS NEGATIVE ng/mL (<50); Nordiazepam, Confirm NEGATIVE ng/mL (<50); Oxazepam Ur, GC/MS NEGATIVE ng/mL (<50); Temazepam, Confirm NEGATIVE ng/mL (<50)
[2022-01-12] MEDS: SODIUM CHLORIDE 1 GM TABLET PO SCH (07:46)
[2022-01-12] MEDS: MELOXICAM 7.5 MG TAB PO SCH (07:46)
[2022-01-12] MEDS: PANTOprazole 40 MG TAB PO SCH (07:46)
[2022-01-12] MEDS: LUBIPROSTONE 8 MCG CAP PO SCH (07:46)
[2022-01-12] MEDS: FOLIC ACID 400 MCG TAB PO SCH (07:47)
[2022-01-12] MEDS: ATORVASTATIN 40 MG TAB PO SCH (07:47)
[2022-01-12] MEDS: CYCLOBENZAPRINE HCL 5 MG TAB PO PRN (07:47)
[2022-01-12] MEDS: ASPIRIN 81 MG ECTAB PO SCH (07:47)
[2022-01-12] MEDS: LORATADINE 10 MG TAB PO SCH (07:48)
[2022-01-12] MEDS: LACTATED RINGER'S 1,000 ML IV SCH (09:49)
[2022-01-12 10:24] LABS: BUN Creatinine Ratio 6.5 (10-20); Calcium 7.6 mg/dl (8.5-10.1); Creatinine Clr Calc Pharmacy 86.5 ml/min; Est GFR (African American) 121.8 ml/min; Est GFR (Non-African American) 105.1 ml/min; Potassium 3.8 mmol/L (3.5-5.1)
--- NOTE | 2022-01-12 13:56 | Discharge Summary ---
Date of Service January 12, 2022 Admission HPI Per Admitting Provider Patient is a 66-year-old female with past medical history of hypertension, hyperlipidemia, PVD, ongoing tobacco use, COPD, allergic rhinitis, IBS, and GERD who presents today with 5 days of confusion. Patient recently had hydrochlorothiazide restarted and spironolactone doubled to 50 mg daily on January 01 for ongoing issues with bilateral lower extremity edema. 3 days later on , January 03, patient started to become confused. She has been more slow at home performing her daily routine, has been asking her frequently to confirm she is doing things correctly. She seems confused as to what medications she should be taking. This is all very new for her, she does have a family history of Alzheimer's in her mother, but prior to this she had been alert and oriented and independent at home. No recent head injuries or substance use. Otherwise without complaints, no fever/chills,weakness, chest pain, SOB, cough, abdominal pain, n/v, diarrhea, constipation, or urinary symptoms. In ED, labs significant for WBC 13.02, sodium 121, potassium 3.1, chloride 78, magnesium 1.5, UA with nitrites, [address] head [address] unremarkable. Principal Diagnosis hyponatremia Discharge Exam The patient is awake, alert and oriented 3, well developed and well nourished, normocephalic and atraumatic, lying in bed and in no acute distress. HEENT--PERRL, EOMI, mucous membranes and oropharynx mildly dry Neck--supple. No JVD. No bruits. Thyroid normal, trachea midline, no adenopathy. Heart--normal S1 and S2. No murmurs, rubs or gallops. Lungs--clear bilaterally, no respiratory distress, no accessory muscle use. Abdomen--normal bowel sounds and soft. Mild epigastric and left sided abdominal pain Extremities--no cyanosis or clubbing. No edema. Dermatologic--normal skin turgor, normal color, no abnormal lymph nodes, no rash. Neurologic--cranial nerves II through XII grossly intact. Rheumatologic--normal range of motion. Psychiatric--normal affect. Discharge Data Allergies Allergy/AdvReac Type Severity Reaction Status Date / Time Latex, Natural Rubber Allergy Intermediate GLOVES--HANDS Verified 01/09/22 15:57 SWELLED AND ITCHY banana Allergy Verified 01/10/22 14:19 Consultations 01/09/22 15:37 ED Decision to Admit Stat Ordered Studies 01/09/22 13:10 CT head/brain wo con Stat Hospital Course (1) Hyponatremia: - Admitted with a Na 121, with new onset confusion. Likely iatrogenic on account of HCTZ being restarted several days before confusion began. Patient also drinks at least an estimated 3L water/day. Serum sodium now improved to 129 after fluid restriction, will continue - Hold HCTZ upon discharge (2) Acute encephalopathy: Acute metabolic encephalopathy, secondary to hyponatremia Now resolved Patient at baseline mentation (3) Hypokalemia: - Now resolved (4) Hypomagnesemia: - now resolved (5) Abnormal urine: - Leukocytosis, UA with nitrite and 1+ bacteria. - Received ceftriaxone in ED. She is currently asymptomatic, but does have elevated WBC. Will continue abx for now given this, however suspect confusion is a result of her hyponatremia and less likely from a UTI. (6) PVD (peripheral vascular disease): - Continue aspirin, statin. (7) Hypertension: - Stop HCTZ upon discharge Continue Amlodipine (5mg instead of her home 2.5mg) (8) Dyslipidemia: - Continue statin. (9) Insomnia: - Continue flurazepam 30 mg at night as needed. - Cannot tolerate substitutions, if not on hospital formulary, will bring in her medication. (10) IBS (irritable bowel syndrome): - Continue Amitiza. (11) Allergic rhinitis: - Continue Flonase and Claritin. (12) GERD without esophagitis: - Continue Protonix 40 mg twice daily. (13) Chronic distal aortic occlusion: - Stable, follows with vascular. (14) COPD (chronic obstructive pulmonary disease): - Stable, no acute exacerbation today, Smokes socially, less than 1 pack per week. Not requesting nicotine patch. - Albuterol inhaler Q6h prn. - hopefully d/c in the next 24 hrs - SCDs, Lovenox for DVT ppx. - Ful Code. Total Time Total Time Spent Total Time Spent (In Minutes): 35 Discharge Plan Discharge Items Patient Disposition: Home - Self-Care Reason For Visit: HYPOATREMIA W/ CONFUSION Discharge Diagnosis: hyponatremia Activity: Resume your previous activity Non-emergency contact: Primary Care Provider Call non-emergency contact if: you have any medication questions Follow-up/Referrals: Sienna Real DO [Primary Care Provider] - Diet: Regular Fluids: 1200ml (5 cups) Addtl Attending Provider Instructions: please make appointment to follow up with your regular PCP Pending Studies at Discharge: No Stand-Alone Forms: [facility], Smoking Cessation Medications and DC Order Prescriptions: New sodium chloride 1 gram Tablet 1 g PO BID 30 Days Qty: 60 RF: 0 amlodipine 5 mg tablet 5 mg PO DAILY Qty: 30 RF: 0 Continued lubiprostone [Amitiza] 24 mcg capsule 24 mcg PO BID Qty: 180 RF: 3 Prolia 60 mg/mL syringe 60 mg subcut DIRECTED RF: 0 meloxicam 15 mg tablet 15 mg PO DAILY Qty: 30 RF: 0 pantoprazole 40 mg tablet,delayed release (DR/EC) 40 mg PO BID Qty: 180 RF: 3 albuterol sulfate 90 mcg/actuation HFA aerosol inhaler 2 puff inhalation Q6H PRN (Reason: shortness of breath or wheezing) Qty: 18 RF: 3 cyclobenzaprine 5 mg tablet 5 mg PO DAILY PRN (Reason: muscle spasm) Qty: 30 RF: 0 spironolactone 25 mg tablet 50 mg PO DAILY Qty: 90 RF: 3 flurazepam 30 mg capsule 30 mg PO HS PRN (Reason: insomnia) Qty: 30 RF: 0 loratadine 10 mg tablet 10 mg PO DAILY Qty: 30 RF: 3 fluticasone propionate [Flonase Allergy Relief] 50 mcg/actuation spray,suspension 2 spray intranasal DAILY PRN (Reason: nasal congestion) Qty: 16 RF: 0 aspirin 81 mg tablet,delayed release (DR/EC) 81 mg PO DAILY Qty: 30 RF: 2 folic acid 0.8 mg capsule 0.8 mg PO DAILY Qty: 30 RF: 2 atorvastatin 40 mg tablet 40 mg PO DAILY RF: 0 senna leaves (bulk) Leaves 1 ea MISCELLANEOUS BID RF: 0 ergocalciferol (vitamin D2) [Vitamin D2] 1,250 mcg (50,000 unit) Capsule 1,250 mcg PO WK RF: 0 multivitamin with minerals Tablet 1 tab PO DAILY RF: 0 Discontinued hydrochlorothiazide 25 mg tablet 25 mg PO DAILY PRN (Reason: swelling) Qty: 30 RF: 3 amlodipine 2.5 mg tablet 2.5 mg PO PM Qty: 90 RF: 3 Discharge Orders: Discharge Order (Routine); Ordered 01/12/22 Ordered By: Maxwell Hodges/Other Patient Handouts: Hyponatremia Dc Admission Data Admit Date/Time: 01/09/22 17:08 Attending Provider: Maxwell Mattson Admit Provider: Weor Boone Primary Care Provider: Sienna Real Other Providers: Wreo Boone Other Interventions: Discharge Summary Assessment (RN) Last Done: 01/12/22 12:28 Coding Level of Care Code D/C DAY MANAGEMENT >30 MINS Diagnoses Hyponatremia E87.1 Acute encephalopathy G93.40 Hypokalemia E87.6 Hypomagnesemia E83.42 Abnormal urine R82.90 PVD (peripheral vascular disease) I73.9 Hypertension I10 Dyslipidemia E78.5 Insomnia G47.00 IBS (irritable bowel syndrome) K58.9 Allergic rhinitis J30.9 GERD without esophagitis K21.9 Chronic distal aortic occlusion I74.09 COPD (chronic obstructive pulmonary disease) J44.9 Time Spent (min) 35
== END 2022-01-12 12:56 | disposition home or self-care (01) | DRG 640 ==
LOC: ED 11:52 → 2W 17:08 → SUATTDRO 17:08 → 2W 19:48